=== PATIENT | female | born 1930 | race Caucasian/White ===

== ENCOUNTER 2021-08-09 11:13 | Inpatient (IN) | payer MEDICARE ==
[~2021-08-09] VITALS: Ht 167.6 cm; Wt 75.0 kg
--- NOTE | 2021-08-09 11:45 | PHYS DOC ---
Past Medical History Past Medical History: Arthritis, Arrhythmia, Dementia, Hypertension, Hypo thyroid, Renal Disease Additional Past Medical Histor: uterine ca, skin cancer, cateract, rentinal detatchment (RAFAEL ESPINOZA APRN) Past Surgical History: Cancer Surgery (RAFAEL ESPINOZA APRN) Smoking Status: Never Smoker Alcohol Use: None Drug Use: None (RAFAEL ESPINOZA APRN) General Adult HPI: HPI: Patient is an 89-year-old female that presents today via EMS after falling yesterday and being found in the bathroom by her family this morning. Per EMS report patient was found by granddaughter in the bathroom patient is pleasantly confused unable to say how she fell or when she fell, but per report family saw her yesterday afternoon. Patient was incontinent of both bowel and bladder and was being provided pericare at bedside was noted to have skin breakdown on her buttock area, also bruises noted on her back in various stages of healing, also noted to have a left heel skin breakdown noted, bruises noted on her arms as well. Patient unable to give history and has never been to this facility before. (RAFAEL ESPINOZA TABULAR TYPIST) Review of Systems: Review of Systems: Patient is confused and denies any complaints of pain or issues. (RAFAEL ESPINOZA TABULAR TYPIST) Heart Score: C/O Chest Pain: N/A Risk Factors: Risk Factors: DM, Current or recent (<one month) smoker, HTN, HLP, family history of CAD, obesity. Risk Scores: Score 0 - 3: 2.5% MACE over next 6 weeks - Discharge Home Score 4 - 6: 20.3% MACE over next 6 weeks - Admit for Clinical Observation Score 7 - 10: 72.7% MACE over next 6 weeks - Early Invasive Strategies (RAFAEL ESPINOZA APRN) Physical Exam: PE: Constitutional: Frail elderly female, pleasantly confused, nontoxic and no acute distress HENT: Normocephalic, atraumatic, bilateral external ears normal, oropharynx dry, [] Eyes: PERRLA, EOMI, conjunctiva normal, no discharge. [] Neck: Normal range of motion, no tenderness, supple, no stridor. [] Cardiovascular:irregular, peripheral pulse present Lungs & Thorax: Bilateral breath sounds present, heart tones normal, no crepitus noted, contusion noted Abdomen: Bowel sounds normal, soft, no tenderness, no masses, no pulsatile masses. [] Skin: Pressure wounds noted on coccyx area and buttocks area, periarea is red and excoriated, left heel pressure wound noted no active bleeding, bruises noted over arms, left posterior chest wall large size bruise noted, right posterior chest bruising noted. Back: tenderness over posterior chest wall noted, [] Extremities: No tenderness, no cyanosis, no clubbing, ROM intact, no edema. [] Neurologic: Alert and oriented to person and knows she is in the hospital, unable to recall the last 24 hours, normal motor function, normal sensory function, no focal deficits noted. [] Psychologic: Affect normal, pleasant, cooperative with staff, [] (RAFAEL ESPINOZA APRN) Current Patient Data: Labs: Laboratory Tests Test 08/09/21 11:27 08/09/21 12:08 Urine Collection Type U cath Urine Color Yellow Urine Clarity Clear Urine pH 6.0 Urine Specific [place] 1.025 Urine Protein 100 mg/dL Urine Glucose (UA) 100 mg/dL Urine Ketones (Stick) 15 mg/dL Urine Blood Large Urine Nitrite Negative Urine Bilirubin Negative Urine Urobilinogen Dipstick 0.2 mg/dL Urine Leukocyte Esterase Negative Urine RBC 1-2 /HPF Urine WBC Occ /HPF Urine Bacteria Few /HPF White Blood Count 14.7 x10^3/uL Red Blood Count 3.64 x10^6/uL Hemoglobin 12.7 g/dL Hematocrit 37.0 % Mean Corpuscular Volume 102 fL Mean Corpuscular Hemoglobin 35 pg Mean Corpuscular Hemoglobin Concent 34 g/dL Red Cell Distribution Width 12.8 % Platelet Count 202 x10^3/uL Neutrophils (%) (Auto) 90 % Lymphocytes (%) (Auto) 4 % Monocytes (%) (Auto) 6 % Eosinophils (%) (Auto) 0 % Basophils (%) (Auto) 1 % Neutrophils # (Auto) 13.2 x10^3/uL Lymphocytes # (Auto) 0.5 x10^3/uL Monocytes # (Auto) 0.9 x10^3/uL Eosinophils # (Auto) 0.0 x10^3/uL Basophils # (Auto) 0.1 x10^3/uL Platelet Estimate Pending Sodium Level 144 mmol/L Potassium Level 4.6 mmol/L Chloride Level 108 mmol/L Carbon Dioxide Level 21 mmol/L Anion Gap 15 Blood Urea Nitrogen 54 mg/dL Creatinine 2.7 mg/dL Estimated GFR (Cockcroft-Gault) 16.6 BUN/Creatinine Ratio 20 Glucose Level 146 mg/dL Calcium Level 9.1 mg/dL Total Bilirubin 0.7 mg/dL Aspartate Amino Transf (AST/SGOT) 70 U/L Alanine Aminotransferase (ALT/SGPT) 43 U/L Alkaline Phosphatase 54 U/L Creatine Kinase 1531 U/L Troponin I Quantitative 0.032 ng/mL Total Protein 7.1 g/dL Albumin 3.2 g/dL Albumin/Globulin Ratio 0.8 Current Medications Medications (Trade) Dose Ordered Sig/Kevin Route PRN Reason Start Time Stop Time Status Last Admin Dose Admin Sodium Chloride 500 ml @ 250 mls/hr 1X ONCE IV 08/09/21 13:30 08/09/21 15:29 UNV (RAFAEL ESPINOZA APRN) EKG: EKG: EKG done at [address] Bourne at 1157 no STEMI sinus rhythm no ectopy noted [] (RAFAEL ESPINOZA TABULAR TYPIST) Radiology/Procedures: Radiology/Procedures: REASON: fall PROCEDURE: CHEST AP ONLY AP chest. HISTORY: Fall AP view was taken of the chest. There is arthritis in both shoulders. Lungs are free of infiltrates. Heart is normal in size. There is a skin fold on the left. IMPRESSION: 1. No acute infiltrates. Electronically signed by: Leobardo Blanc MD (08/09/2021 11:54 AM) [facility] [PROCEDURE: CT CHEST ABDOMEN PELVIS WO CT scan of the chest, abdomen and pelvis without contrast 08/09/2021 CLINICAL HISTORY: Fall with chest, abdominal and pelvic pain. TECHNIQUE: Unenhanced, contiguous, 0.625 mm axial sections were obtained through the chest abdomen and pelvis. 5 mm reconstructed sagittal, axial and coronal images were obtained. One or more of the following individualized dose reduction techniques were utilized for this study: 1. Automated exposure control. 2. Adjustment of the mA and/or kV according to patient size. 3. Use of iterative reconstruction technique. FINDINGS: Comparison study is dated 08/09/2021. Atherosclerotic calcification of the thoracic aorta is seen. The thoracic aorta is tortuous but tapers normally. There is mild cardiomegaly. No mediastinal hematoma is seen. Minimal dependent subsegmental atelectasis is seen bilaterally. No area of consolidation is noted. No pneumothorax or pleural effusion is seen. The liver, spleen, pancreas, right adrenal gland and left kidney are within normal limits. A 2.5 cm rounded mass is seen involving the left adrenal gland. This likely represents an adrenal adenoma. A 3 mm nonobstructing calculus is seen involving the midpole of the right kidney. Atherosclerotic calcification abdominal aorta is seen. The abdominal aorta tapers normally. The gallbladder is well-distended. No free fluid or free air is within the abdomen. There is no evidence of bowel obstruction. Diverticula are seen involving the colon. No inflammatory changes are seen adjacent fat. Images of the pelvis and straight 3 urinary bladder distended with urine. Calcifications are seen within the pelvis consistent with phleboliths. No pelvic hematoma is seen. No free fluid is noted. Very mild S-shaped curvature of the thoracolumbar spine is seen. Degenerative changes are seen involving the thoracic and lumbar spine. Degenerative changes are seen involving the thoracic and lumbar spine along with both hips. The osseous structures are grossly intact. IMPRESSION: No acute abnormality is seen. ]REASON: fall PROCEDURE: CT HEAD AND CERVICAL SPINE WO CT HEAD AND C-SPINE WO Date: 08/09/2021 12:18 PM Clinical Indication: Pain, fall / Spl. Instructions: / History: Comparison: None. Technique: 5 mm axial tomographic images were obtained of the head without contrast. These were viewed on brain and bone windows. Noncontrast CT of the cervical spine was performed. Sagittal and coronal reformats were performed and evaluated. One or more of the following dose reduction techniques were utilized: Automated exposure control (AEC), Adjustment of mA and/or kV according to patient size, Use of iterative reconstruction technique such as ASiR, CT scan done according to ALARA and image gently/image wisely HEAD FINDINGS: Mild generalized cerebral and cerebellar volume loss. Mild nonspecific periventricular hypoattenuation, most commonly seen with chronic small vessel ischemic disease. No intra- or extra-axial mass or fluid collection. No acute hemorrhage. The ventricles are normal in size, shape, and morphology. The sanders-white matter junction is normal. The basilar cisterns are patent. The visualized paranasal sinuses are normal. The visualized portions of the orbits and globes are normal. The mastoid air cells are clear. No aggressive osseous lesion or fracture. CERVICAL SPINE FINDINGS: The cervical spine is normally aligned. No acute fracture. No aggressive lytic or blastic osseous lesions. Severe multilevel degenerative disc space height loss. Multilevel moderate spinal canal stenosis secondary to disc protrusions and marginal osteophytes. Multilevel moderate to severe neuroforaminal narrowing secondary to uncovertebral arthrosis. Multilevel moderate to severe facet arthrosis. The thyroid gland is normal. No cervical lymphadenopathy. Bilateral carotid atherosclerosis. The visualized aerodigestive tract is normal. The visualized portions of the lungs are clear. IMPRESSION: 1. No acute intracranial process. 2. No acute cervical spine fracture. Electronically signed by: Gurinder Adams MD (08/09/2021 1:06 PM) [facility] (RAFAEL ESPINOZA APRN) Course & Med Decision Making: Course & Med Decision Making Pertinent Labs and Imaging studies reviewed. (See chart for details) 12:00 granddaughter at bedside was able to provide more information patient was last seen on Wednesday by great-granddaughter, per granddaughter patient has a mass medical history of hypertension, renal issues, thyroid issues and some early stages of dementia. No concerns for elderly abuse at this time. 1345 spoke to granddaughter and patient regarding lab results and radiology results, due to being a patient safety issue and renal function tests being abnormal that patient admission overnight or longer would be in the patient's best interest. Granddaughter and patient agree. Patient is complaining of coccyx pain will order Tylenol, vital signs stable going to speak with hospitalist about admission [] (RAFAEL ESPINOZA TABULAR TYPIST) Course & Med Decision Making Discussed with BREN in real time. Concerned for rhabdomyolysis based on CK, KAYLEY, Blood on UA with only 1-2 rbc/hpf. Recommended rehydration at IVF > 200 ml/hr and admission. (ROBERT BOURNE MD) Dragon Disclaimer: Dragon Disclaimer: This electronic medical record was generated, in whole or in part, using a voice recognition dictation system. (RAFAEL ESPINOZA APRN) Departure Departure Impression: Primary Impression: Acute renal failure (ARF) Qualified Codes: N17.9 - Acute kidney failure, unspecified Additional Impressions: Fall at home Qualified Codes: W19.XXXA - Unspecified fall, initial encounter; Y92.009 - Unspecified place in unspecified non-institutional (private) residence as the place of occurrence of the external cause Rhabdomyolysis Disposition: 09 ADMITTED INPATIENT Admitting Physician: TERRENCE (RAFAEL ESPINOZA APRN) Condition: GUARDED RAFAEL ESPINOZA APRN Aug 09, 2021 11:45 ROBERT BOURNE MD Aug 10, 2021 18:28
[2021-08-09 11:46] LABS: BILIRUBIN,URINE NEGATIVE (NEG); CLARITY,URINE CLEAR; COLOR,URINE YELLOW; NITRITE,URINE NEGATIVE (NEG); PROTEIN,URINE 100 mg/dL (NEG-TRACE); UROBILINOGEN,URINE 0.2 mg/dL (0.2 mg/dL)
[2021-08-09 11:57] LABS: BACTERIA,URINE FEW /HPF (0-FEW); WBC,URINE OCC /HPF (0-4)
--- NOTE | 2021-08-09 11:57 | RAD ---
AP chest. HISTORY: Fall AP view was taken of the chest. There is arthritis in both shoulders. Lungs are free of infiltrates. Heart is normal in size. There is a skin fold on the left. IMPRESSION: 1. No acute infiltrates. Electronically signed by: Leobardo Blanc MD (08/09/2021 11:54 AM) [facility]
[2021-08-09 12:18] LABS: BASO # 0.1 x10^3/uL (0.0-0.2); BASO % 1 % (0-3); EOS % 0 % (0-3); HEMOGLOBIN 12.7 g/dL (12.0-15.5); LYMPH # 0.5 x10^3/uL (1.0-4.8); LYMPH % 4 % (24-48); MEAN CORPUSCULAR HEMOGLOBIN 35 pg (25-35); MEAN CORPUSCULAR HGB CONC 34 g/dL (31-37); MEAN CORPUSCULAR VOLUME 102 fL (79-100); MONO # 0.9 x10^3/uL (0.0-1.1); MONO % 6 % (0-9); NEUT # 13.2 x10^3/uL (1.8-7.7); NEUT % 90 % (31-73); PLATELET COUNT 202 x10^3/uL (140-400); RED BLOOD COUNT 3.64 x10^6/uL (3.50-5.40); RED CELL DISTRIBUTION WIDTH 12.8 % (11.5-14.5); WHITE BLOOD COUNT 14.7 x10^3/uL (4.0-11.0)
[2021-08-09 12:25] LABS: CALCIUM 9.1 mg/dL (8.5-10.1); CREATININE 2.7 mg/dL (0.6-1.0); GFR 16.6; POTASSIUM 4.6 mmol/L (3.5-5.1)
[2021-08-09 12:41] LABS: ALBUMIN 3.2 g/dL (3.4-5.0); ALBUMIN/GLOBULIN RATIO 0.8 (1.0-1.7); TOTAL BILIRUBIN 0.7 mg/dL (0.2-1.0); TOTAL PROTEIN 7.1 g/dL (6.4-8.2)
--- NOTE | 2021-08-09 13:01 | EKG ---
[facility] [address] [place] [address] Test Date: 2021-08-09 Test Time: 11:53:10 Pat Name: SIMON BISWAS Department: Room: Gender: F Career Professional: : [id number] Requested By: RAFAEL ESPINOZA Order Number: [id number] Reading MD: Blane Jarvis MD Measurements Intervals [place] Rate: 98 P: 52 DE: 170 QRS: -5 QRSD: 78 T: 23 QT: 348 QTc: 446 Interpretive Statements SINUS RHYTHM Electronically Signed On 08-11-2021 11:00:35 CDT by Blane Jarvis MD
--- NOTE | 2021-08-09 13:09 | RAD ---
CT HEAD AND C-SPINE WO Date: 08/09/2021 12:18 PM Clinical Indication: Pain, fall / Spl. Instructions: / History: Comparison: None. Technique: 5 mm axial tomographic images were obtained of the head without contrast. These were view ed on brain and bone windows. Noncontrast CT of the cervical spine was performed. Sagittal and muse l reformats were performed and evaluated. One or more of the following dose reduction techniques were utilized: Automated exposure control (AEC), Adjustment of mA and/or kV according to patient size, Us e of iterative reconstruction technique such as ASiR, CT scan done according to ALARA and image gentl y/image wisely HEAD FINDINGS: Mild generalized cerebral and cerebellar volume loss. Mild nonspecific periventricular hypoattenuatio n, most commonly seen with chronic small vessel ischemic disease. No intra- or extra-axial mass or fluid collection. No acute hemorrhage. The ventricles are normal in size, shape, and morphology. The sanders-white matter junction is normal. The basilar cisterns are paten t. The visualized paranasal sinuses are normal. The visualized portions of the orbits and globes are no rmal. The mastoid air cells are clear. No aggressive osseous lesion or fracture. CERVICAL SPINE FINDINGS: The cervical spine is normally aligned. No acute fracture. No aggressive lytic or blastic osseous les ions. Severe multilevel degenerative disc space height loss. Multilevel moderate spinal canal stenosis seco ndary to disc protrusions and marginal osteophytes. Multilevel moderate to severe neuroforaminal narr owing secondary to uncovertebral arthrosis. Multilevel moderate to severe facet arthrosis. The thyroid gland is normal. No cervical lymphadenopathy. Bilateral carotid atherosclerosis. The visu alized aerodigestive tract is normal. The visualized portions of the lungs are clear. IMPRESSION: 1. No acute intracranial process. 2. No acute cervical spine fracture. Electronically signed by: Gurinder Adams MD (08/09/2021 1:06 PM) [facility]
--- NOTE | 2021-08-09 13:28 | RAD ---
CT scan of the chest, abdomen and pelvis without contrast 08/09/2021 CLINICAL HISTORY: Fall with chest, abdominal and pelvic pain. TECHNIQUE: Unenhanced, contiguous, 0.625 mm axial sections were obtained through the chest abdomen an d pelvis. 5 mm reconstructed sagittal, axial and coronal images were obtained. One or more of the following individualized dose reduction techniques were utilized for this study: 1. Automated exposure control. 2. Adjustment of the mA and/or kV according to patient size. 3. Use of iterative reconstruction technique. FINDINGS: Comparison study is dated 08/09/2021. Atherosclerotic calcification of the thoracic aorta is seen. The thoracic aorta is tortuous but taper s normally. There is mild cardiomegaly. No mediastinal hematoma is seen. Minimal dependent subsegmental atelectasis is seen bilaterally. No area of consolidation is noted. No pneumothorax or pleural effusion is seen. The liver, spleen, pancreas, right adrenal gland and left kidney are within normal limits. A 2.5 cm r ounded mass is seen involving the left adrenal gland. This likely represents an adrenal adenoma. A 3 mm nonobstructing calculus is seen involving the midpole of the right kidney. Atherosclerotic calcification abdominal aorta is seen. The abdominal aorta tapers normally. The gallb ladder is well-distended. No free fluid or free air is within the abdomen. There is no evidence of adina wel obstruction. Diverticula are seen involving the colon. No inflammatory changes are seen adjacent fat. Images of the pelvis and straight 3 urinary bladder distended with urine. Calcifications are seen wit hin the pelvis consistent with phleboliths. No pelvic hematoma is seen. No free fluid is noted. Very mild S-shaped curvature of the thoracolumbar spine is seen. Degenerative changes are seen involving t he thoracic and lumbar spine. Degenerative changes are seen involving the thoracic and lumbar spine a long with both hips. The osseous structures are grossly intact. IMPRESSION: No acute abnormality is seen. Electronically signed by: Jeyson Orosco MD (08/09/2021 1:26 PM) [id number]
[2021-08-09] MEDS ORDERED: ACETAMINOPHEN 325 MG TABLET. PO PRN (14:00)
[2021-08-09] MEDS ORDERED: ACETAMINOPHEN 500 MG TABLET PO ONE (14:00)
[2021-08-09 14:11] LABS: % BANDS 3 % (0-9); % LYMPHS 7 % (24-48); % MONOS 4 % (0-10); % SEGS 86 % (35-66)
[2021-08-09 14:12] LABS: PLT ESTIMATE ADEQUATE (ADEQUATE)
[2021-08-09] MEDS ORDERED: IV NORMAL SALINE 500ML BAG 250 ML IV ONE (14:30)
[2021-08-09 19:00] VITALS: BP 166/81
[2021-08-09] MEDS ORDERED: IV NORMAL SALINE 1000ML BAG 1,000 ML IV SCH (19:00)
--- NOTE | 2021-08-09 20:13 | HP ---
DATE OF SERVICE: 08/09/2021 ADMIT DATE: 08/09/2021 CHIEF COMPLAINT: Found down. HISTORY OF PRESENT ILLNESS: The patient is a pleasant elderly female who I believe lives alone. She was found down. She has bruises all over. She has some skin breakdown. She has a burn on her left hand that appears to possibly be trying to heal, but it looks similar to a skin cancer as well, although she states that it is a burn. While in the ER, we noticed that she is in renal failure with a creatinine of 2.7. I suspect this is chronic. She has some azotemia with a BUN of 54. Her white count is also high at 15. She has a slightly elevated blood pressure 166/81. I discussed the case with ER physician. We are going to admit the patient and consult social studies department chair for possible long-term care placement, do some wound care and consult Nephrology regarding her acute on chronic renal failure. I have also placed on some empiric IV antibiotics. PAST MEDICAL HISTORY: Arrhythmia, arthritis, dementia, hypertension, hypothyroidism, chronic renal insufficiency, uterine cancer, skin cancer, cataracts, retinal detachment, cancer surgery. ALLERGIES: LISINOPRIL. FAMILY HISTORY: Diabetes. SOCIAL HISTORY: She does not drink, smoke or take drugs. She is retired, lives alone. MEDICATIONS: Reviewed, please refer to the MRAD. REVIEW OF SYSTEMS: GENERAL: She complains of weakness. SKIN: She complains of bruises. EYES: No blurred, double or loss of vision. NOSE AND THROAT: No history of nosebleeds, hoarseness or sore throat. HEART: No history of palpitations, chest pain or shortness of breath on exertion. LUNGS: Denies cough, hemoptysis, wheezing or shortness of breath. GASTROINTESTINAL: Denies changes in appetite, nausea, vomiting, diarrhea or constipation. GENITOURINARY: No history of frequency, urgency, hesitancy or nocturia. NEUROLOGIC: She complains of falls. PSYCHIATRIC: She complains of some boredom and depression at times. ENDOCRINE: No history of heat or cold intolerance, polyuria or polydipsia. EXTREMITIES: Denies muscle weakness, joint pain, pain on walking or stiffness. . PHYSICAL EXAMINATION: VITALS: Within normal limits and are stable. GENERAL: She is pleasant. HEENT: Normal cephalic atraumatic, external auditory canals are patent. EYES: Extraocular muscles are intact, pupils are equally round and reactive to light and accommodation. MUSCULOSKELETAL: Well developed, well nourished, good range of motion. ENDOCRINE: No thyromegaly was palpated. LYMPHATICS: No cervical chain or axillary nodes were noted. HEMATOPOIETIC: No bruising. NECK: Supple, no JVD, no thyromegaly was noted. LUNGS: Clear to auscultation in all lung walls without rhonchi or wheezing. HEART: RRR, S1, S2 present. Peripheral pulses intact, no obvious murmurs were noted. ABDOMEN: Soft, nontender. Positive bowel sounds no organomegaly, normal bowel sounds. EXTREMITIES: She has got multiple bruises. NEUROLOGIC: Normal speech, normal tone. A and O x 3, moves all extremities, no obvious focal deficits. PSYCHIATRIC: She is a little anxious. SKIN: She has got multiple bruises. Please see the pictures. VASCULAR: Good capillary refill, neurovascular bundle appears to be intact. LABORATORY DATA: White count 14.7, hemoglobin 12.7, platelets 202. BUN 54, creatinine 2.7, glucose 146. CPK 1531. ASSESSMENT AND PLAN: Found down, rhabdomyolysis, acute on chronic renal failure, leukocytosis, azotemia and advanced age. The patient has been admitted. We will start empiric IV antibiotics, IV fluids. Consult Nephrology. Consult social studies department chair. Trend labs. Home meds. Deep venous thrombosis prophylaxis. Full code. Long-term prognosis is guarded. GETACHEW DR: Key TID: [id number]
[2021-08-09] MEDS: cefTRIAXone IV Push 1 GM VIAL. IVP SCH (21:32)
[2021-08-09] MEDS: IV NORMAL SALINE 1000ML BAG 1,000 ML IV SCH (21:33)
[2021-08-09 23:05] VITALS: BP 169/89
[2021-08-10 03:00] VITALS: BP 167/83
[2021-08-10 07:00] VITALS: BP 171/90
[2021-08-10 07:54] LABS: BASO % 0 % (0-3); EOS # 0.1 x10^3/uL (0.0-0.7); EOS % 1 % (0-3); HEMATOCRIT 31.6 % (36.0-47.0); HEMOGLOBIN 10.6 g/dL (12.0-15.5); LYMPH % 9 % (24-48); MEAN CORPUSCULAR HEMOGLOBIN 35 pg (25-35); MEAN CORPUSCULAR HGB CONC 34 g/dL (31-37); MEAN CORPUSCULAR VOLUME 103 fL (79-100); MONO # 0.9 x10^3/uL (0.0-1.1); MONO % 9 % (0-9); NEUT # 8.3 x10^3/uL (1.8-7.7); NEUT % 81 % (31-73); PLATELET COUNT 174 x10^3/uL (140-400); RED BLOOD COUNT 3.08 x10^6/uL (3.50-5.40); WHITE BLOOD COUNT 10.3 x10^3/uL (4.0-11.0)
[2021-08-10] MEDS: LEVOTHYROXINE 25 MCG TABLET. PO SCH (07:57)
[2021-08-10 08:33] LABS: CALCIUM 8.4 mg/dL (8.5-10.1); CREATININE 2.6 mg/dL (0.6-1.0); GFR 17.4; POTASSIUM 3.8 mmol/L (3.5-5.1)
[2021-08-10] MEDS: IV NORMAL SALINE 1000ML BAG 1,000 ML IV SCH ×2 (09:20→22:40)
--- NOTE | 2021-08-10 11:21 | PDOC2 ---
CONSULT Date of Consult Date of Consult DATE: 08/10/21 TIME: 11:13 Reason for Consult Reason for Consult: KAYLEY Referring Physician Referring Physician: TY Identification/Chief Complaint Chief Complaint FALL, CONFUSION Source Source: Chart review History of Present Illness Reason for Visit: THIS IS AN 89 YR OLD WITH FALL AND BRUISES. CPK UP. CONFUSED. UA NOTABLE FOR DIPSTICK POS RBC BUT RARE ON HPF. CR OF 2.8. NO KNOWN CKD BUT PROB HAS SOME UNDERLYING CKD. HEMODYNAMICALLY STABLE. NO NEPHROTOXINS NOTED. NO OTHER KNOWN HX. Past Medical History Past Medical History UNKNOWN Endocrine: Hypothyroidism Past Surgical History Past Surgical History UNKNOWN Family History Family History: No Significant Social History No ALCOHOL: none Lives: Alone Current Problem List Problem List Problems Medical Problems: (1) Acute renal failure (ARF) Status: Acute (2) Fall at home Status: Acute Current Medications Current Medications Current Medications Sodium Chloride 250 ml @ 125 mls/hr 1X ONCE IV Last administered on 08/09/21at 14:21; Start 08/09/21 at 14:30; Stop 08/09/21 at 16:29; Status DC Acetaminophen (Tylenol) 500 mg 1X ONCE PO Last administered on 08/09/21at 14:19; Start 08/09/21 at 14:00; Stop 08/09/21 at 14:17; Status DC Acetaminophen (Tylenol) 650 mg PRN Q4HRS PRN PO FEVER > 100.3'F Last admi nistered on 08/10/21at 07:57; Start 08/09/21 at 14:00; Stop 08/10/21 at 13:59 Verapamil HCl (Calan) 40 mg DAILY PO ; Start 08/10/21 at 09:00 Levothyroxine Sodium (Synthroid) 25 mcg DAILY06 PO Last administered on 08/10/21at 07:57; Start 08/10/21 at 06:00 Sodium Chloride 1,000 ml @ 100 mls/hr Q10H IV ; Start 08/09/21 at 19:00; Status Cancel Sodium Chloride 1,000 ml @ 75 mls/hr [id number] IV Last administered on 08/10/21at 09:20; Start 08/09/21 at 20:00 Ceftriaxone Sodium (Rocephin) 1 gm Q24H IVP Last administered on 08/09/21at 21:32; Start 08/09/21 at 21:00 Allergies Allergies: Coded Allergies: lisinopril (Verified Allergy, Intermediate, 08/09/21) ROS Review of System UNABLE TO OBTAIN Physical Exam General: Cooperative, No acute distress HEENT: Atraumatic, PERRLA Lungs: Clear to auscultation Heart: Regular rate Abdomen: Normal bowel sounds Extremities: No clubbing Skin: No breakdown, Other (BRUISING DIFFUSELY UE) Neuro: Other (CONFUSED) Psych/Mental Status: Other (CONFUSED) MUSCULOSKELETAL: No deformity, No swelling Vitals VITALS Vital Signs Date Time Temp Pulse Resp B/P (MAP) Pulse Ox O2 Delivery O2 Flow Rate FiO2 08/10/21 07:00 98.3 89 16 171/90 (117) 94 Room Air 98.3 Labs Labs Laboratory Tests Test 08/09/21 11:27 08/09/21 12:08 08/10/21 07:30 Urine Collection Type U cath Urine Color Yellow Urine Clarity Clear Urine pH 6.0 (<5.0-8.0) Urine Specific [place] 1.025 (1.000-1.030) Urine Protein 100 mg/dL (NEG-TRACE) Urine Glucose (UA) 100 mg/dL (NEG) Urine Ketones (Stick) 15 mg/dL (NEG) Urine Blood Large (NEG) Urine Nitrite Negative (NEG) Urine Bilirubin Negative (NEG) Urine Urobilinogen Dipstick 0.2 mg/dL (0.2 mg/dL) Urine Leukocyte Esterase Negative (NEG) Urine RBC 1-2 /HPF (0-2) Urine WBC Occ /HPF (0-4) Urine Bacteria Few /HPF (0-FEW) White Blood Count 14.7 x10^3/uL (4.0-11.0) 10.3 x10^3/uL (4.0-11.0) Red Blood Count 3.64 x10^6/uL (3.50-5.40) 3.08 x10^6/uL (3.50-5.40) Hemoglobin 12.7 g/dL (12.0-15.5) 10.6 g/dL (12.0-15.5) Hematocrit 37.0 % (36.0-47.0) 31.6 % (36.0-47.0) Mean Corpuscular Volume 102 fL (79-100) 103 fL (79-100) Mean Corpuscular Hemoglobin 35 pg (25-35) 35 pg (25-35) Mean Corpuscular Hemoglobin Concent 34 g/dL (31-37) 34 g/dL (31-37) Red Cell Distribution Width 12.8 % (11.5-14.5) 13.0 % (11.5-14.5) Platelet Count 202 x10^3/uL (140-400) 174 x10^3/uL (140-400) Neutrophils (%) (Auto) 90 % (31-73) 81 % (31-73) Lymphocytes (%) (Auto) 4 % (24-48) 9 % (24-48) Monocytes (%) (Auto) 6 % (0-9) 9 % (0-9) Eosinophils (%) (Auto) 0 % (0-3) 1 % (0-3) Basophils (%) (Auto) 1 % (0-3) 0 % (0-3) Neutrophils # (Auto) 13.2 x10^3/uL (1.8-7.7) 8.3 x10^3/uL (1.8-7.7) Lymphocytes # (Auto) 0.5 x10^3/uL (1.0-4.8) 1.0 x10^3/uL (1.0-4.8) Monocytes # (Auto) 0.9 x10^3/uL (0.0-1.1) 0.9 x10^3/uL (0.0-1.1) Eosinophils # (Auto) 0.0 x10^3/uL (0.0-0.7) 0.1 x10^3/uL (0.0-0.7) Basophils # (Auto) 0.1 x10^3/uL (0.0-0.2) 0.0 x10^3/uL (0.0-0.2) Segmented Neutrophils % 86 % (35-66) Band Neutrophils % 3 % (0-9) Lymphocytes % 7 % (24-48) Monocytes % 4 % (0-10) Platelet Estimate Adequate (ADEQUATE) Sodium Level 144 mmol/L (136-145) 144 mmol/L (136-145) Potassium Level 4.6 mmol/L (3.5-5.1) 3.8 mmol/L (3.5-5.1) Chloride Level 108 mmol/L (98-107) 111 mmol/L (98-107) Carbon Dioxide Level 21 mmol/L (21-32) 22 mmol/L (21-32) Anion Gap 15 (6-14) 11 (6-14) Blood Urea Nitrogen 54 mg/dL (7-20) 58 mg/dL (7-20) Creatinine 2.7 mg/dL (0.6-1.0) 2.6 mg/dL (0.6-1.0) Estimated GFR (Cockcroft-Gault) 16.6 17.4 BUN/Creatinine Ratio 20 (6-20) Glucose Level 146 mg/dL (70-99) 111 mg/dL (70-99) Calcium Level 9.1 mg/dL (8.5-10.1) 8.4 mg/dL (8.5-10.1) Total Bilirubin 0.7 mg/dL (0.2-1.0) Aspartate Amino Transf (AST/SGOT) 70 U/L (15-37) Alanine Aminotransferase (ALT/SGPT) 43 U/L (14-59) Alkaline Phosphatase 54 U/L (46-116) Creatine Kinase 1531 U/L (26-192) Troponin I Quantitative 0.032 ng/mL (0.000-0.055) Total Protein 7.1 g/dL (6.4-8.2) Albumin 3.2 g/dL (3.4-5.0) Albumin/Globulin Ratio 0.8 (1.0-1.7) Laboratory Tests Test 08/09/21 11:27 08/09/21 12:08 08/10/21 07:30 Urine Collection Type U cath Urine Color Yellow Urine Clarity Clear Urine pH 6.0 (<5.0-8.0) Urine Specific [place] 1.025 (1.000-1.030) Urine Protein 100 mg/dL (NEG-TRACE) Urine Glucose (UA) 100 mg/dL (NEG) Urine Ketones (Stick) 15 mg/dL (NEG) Urine Blood Large (NEG) Urine Nitrite Negative (NEG) Urine Bilirubin Negative (NEG) Urine Urobilinogen Dipstick 0.2 mg/dL (0.2 mg/dL) Urine Leukocyte Esterase Negative (NEG) Urine RBC 1-2 /HPF (0-2) Urine WBC Occ /HPF (0-4) Urine Bacteria Few /HPF (0-FEW) White Blood Count 14.7 x10^3/uL (4.0-11.0) 10.3 x10^3/uL (4.0-11.0) Red Blood Count 3.64 x10^6/uL (3.50-5.40) 3.08 x10^6/uL (3.50-5.40) Hemoglobin 12.7 g/dL (12.0-15.5) 10.6 g/dL (12.0-15.5) Hematocrit 37.0 % (36.0-47.0) 31.6 % (36.0-47.0) Mean Corpuscular Volume 102 fL (79-100) 103 fL (79-100) Mean Corpuscular Hemoglobin 35 pg (25-35) 35 pg (25-35) Mean Corpuscular Hemoglobin Concent 34 g/dL (31-37) 34 g/dL (31-37) Red Cell Distribution Width 12.8 % (11.5-14.5) 13.0 % (11.5-14.5) Platelet Count 202 x10^3/uL (140-400) 174 x10^3/uL (140-400) Neutrophils (%) (Auto) 90 % (31-73) 81 % (31-73) Lymphocytes (%) (Auto) 4 % (24-48) 9 % (24-48) Monocytes (%) (Auto) 6 % (0-9) 9 % (0-9) Eosinophils (%) (Auto) 0 % (0-3) 1 % (0-3) Basophils (%) (Auto) 1 % (0-3) 0 % (0-3) Neutrophils # (Auto) 13.2 x10^3/uL (1.8-7.7) 8.3 x10^3/uL (1.8-7.7) Lymphocytes # (Auto) 0.5 x10^3/uL (1.0-4.8) 1.0 x10^3/uL (1.0-4.8) Monocytes # (Auto) 0.9 x10^3/uL (0.0-1.1) 0.9 x10^3/uL (0.0-1.1) Eosinophils # (Auto) 0.0 x10^3/uL (0.0-0.7) 0.1 x10^3/uL (0.0-0.7) Basophils # (Auto) 0.1 x10^3/uL (0.0-0.2) 0.0 x10^3/uL (0.0-0.2) Segmented Neutrophils % 86 % (35-66) Band Neutrophils % 3 % (0-9) Lymphocytes % 7 % (24-48) Monocytes % 4 % (0-10) Platelet Estimate Adequate (ADEQUATE) Sodium Level 144 mmol/L (136-145) 144 mmol/L (136-145) Potassium Level 4.6 mmol/L (3.5-5.1) 3.8 mmol/L (3.5-5.1) Chloride Level 108 mmol/L (98-107) 111 mmol/L (98-107) Carbon Dioxide Level 21 mmol/L (21-32) 22 mmol/L (21-32) Anion Gap 15 (6-14) 11 (6-14) Blood Urea Nitrogen 54 mg/dL (7-20) 58 mg/dL (7-20) Creatinine 2.7 mg/dL (0.6-1.0) 2.6 mg/dL (0.6-1.0) Estimated GFR (Cockcroft-Gault) 16.6 17.4 BUN/Creatinine Ratio 20 (6-20) Glucose Level 146 mg/dL (70-99) 111 mg/dL (70-99) Calcium Level 9.1 mg/dL (8.5-10.1) 8.4 mg/dL (8.5-10.1) Total Bilirubin 0.7 mg/dL (0.2-1.0) Aspartate Amino Transf (AST/SGOT) 70 U/L (15-37) Alanine Aminotransferase (ALT/SGPT) 43 U/L (14-59) Alkaline Phosphatase 54 U/L (46-116) Creatine Kinase 1531 U/L (26-192) Troponin I Quantitative 0.032 ng/mL (0.000-0.055) Total Protein 7.1 g/dL (6.4-8.2) Albumin 3.2 g/dL (3.4-5.0) Albumin/Globulin Ratio 0.8 (1.0-1.7) Assessment/Plan Assessment/Plan IMP KAYLEY-CR OF 2.8 RHABDOMYOLYSIS MET ENCEPHALOPATHY LEUCOCYTOSIS PLAN HYDRATION RENAL SONOGRAM F/U CK LEVEL LABS IN AM KRISH LUX MD Aug 10, 2021 11:21
--- NOTE | 2021-08-10 13:00 | PDOC ---
[employer] PROGRESS NOTE Date of Service DOS: DATE: 08/10/21 TIME: 12:52 Chief Complaint Chief Complaint found down History of Present Illness History of Present Illness The patient is a pleasant elderly female who I believe lives alone. She was found down. She has bruises all over. She has some skin breakdown. She has a burn on her left hand that appears to possibly be trying to heal, but it looks similar to a skin cancer as well, although she states that it is a burn. While in the ER, we noticed that she is in renal failure with a creatinine of 2.7. I suspect this is chronic. She has some azotemia with a BUN of 54. Her white count is also high at 15. She has a slightly elevated blood pressure 166/81. I discussed the case with ER physician. We are going to admit the patient and consult community mental health social worker for possible long-term care placement, do some wound care and consult Nephrology regarding her acute on chronic renal failure. I have also placed on some empiric IV antibiotics. 08/10 Patient evaluated and examined at bedside. Really cannot provide much history she is very lethargic. Continue current fluids closely monitor renal function. Continue IV antibiotics. Cultures pending. Nephrology following. Vitals/I&O Vitals/I&O: Vital Signs Date Time Temp Pulse Resp B/P (MAP) Pulse Ox O2 Delivery O2 Flow Rate FiO2 08/10/21 08:25 Room Air 08/10/21 07:00 98.3 89 16 171/90 (117) 94 98.3 I & O 08/09/21 08/09/21 08/10/21 15:00 23:00 07:00 Intake Total 240 ml Output Total 200 ml Balance 240 ml -200 ml Physical Exam General: Cooperative, No acute distress Heart: Regular rate Lungs: Clear Abdomen: Normal bowel sounds, Soft, No tenderness Extremities: No clubbing, No edema, Normal pulses Skin: No breakdown, No significant lesion, Other (BRUISING DIFFUSELY UE) Labs Labs: Laboratory Tests Test 08/10/21 07:30 White Blood Count 10.3 x10^3/uL (4.0-11.0) Red Blood Count 3.08 x10^6/uL (3.50-5.40) Hemoglobin 10.6 g/dL (12.0-15.5) Hematocrit 31.6 % (36.0-47.0) Mean Corpuscular Volume 103 fL (79-100) Mean Corpuscular Hemoglobin 35 pg (25-35) Mean Corpuscular Hemoglobin Concent 34 g/dL (31-37) Red Cell Distribution Width 13.0 % (11.5-14.5) Platelet Count 174 x10^3/uL (140-400) Neutrophils (%) (Auto) 81 % (31-73) Lymphocytes (%) (Auto) 9 % (24-48) Monocytes (%) (Auto) 9 % (0-9) Eosinophils (%) (Auto) 1 % (0-3) Basophils (%) (Auto) 0 % (0-3) Neutrophils # (Auto) 8.3 x10^3/uL (1.8-7.7) Lymphocytes # (Auto) 1.0 x10^3/uL (1.0-4.8) Monocytes # (Auto) 0.9 x10^3/uL (0.0-1.1) Eosinophils # (Auto) 0.1 x10^3/uL (0.0-0.7) Basophils # (Auto) 0.0 x10^3/uL (0.0-0.2) Sodium Level 144 mmol/L (136-145) Potassium Level 3.8 mmol/L (3.5-5.1) Chloride Level 111 mmol/L (98-107) Carbon Dioxide Level 22 mmol/L (21-32) Anion Gap 11 (6-14) Blood Urea Nitrogen 58 mg/dL (7-20) Creatinine 2.6 mg/dL (0.6-1.0) Estimated GFR (Cockcroft-Gault) 17.4 Glucose Level 111 mg/dL (70-99) Calcium Level 8.4 mg/dL (8.5-10.1) Assessment and Plan Assessmemt and Plan Problems Medical Problems: (1) Acute renal failure (ARF) Status: Acute (2) Fall at home Status: Acute Found down, rhabdomyolysis, acute on chronic renal failure, leukocytosis, azotemia and advanced age, metabolic encephalopathy. The patient has been admitted. We will start empiric IV antibiotics, IV fluids. Consult Nephrology. Consult community mental health social worker. Trend labs. Home meds. Deep venous thrombosis prophylaxis. Full code. Long-term prognosis is guarded. Comment Review of Relevant I have reviewed the following items petros (where applicable) has been applied. Medications: Current Medications Medications (Trade) Dose Ordered Sig/Kevin Route PRN Reason Start Time Stop Time Status Last Admin Dose Admin Sodium Chloride 250 ml @ 125 mls/hr 1X ONCE IV 08/09/21 14:30 08/09/21 16:29 DC 08/09/21 14:21 Acetaminophen (Tylenol) 500 mg 1X ONCE PO 08/09/21 14:00 08/09/21 14:17 DC 08/09/21 14:19 Acetaminophen (Tylenol) 650 mg PRN Q4HRS PRN PO FEVER > 100.3'F 08/09/21 14:00 08/10/21 13:59 08/10/21 07:57 Levothyroxine Sodium (Synthroid) 25 mcg DAILY06 PO 08/10/21 06:00 08/10/21 07:57 Sodium Chloride 1,000 ml @ 75 mls/hr [id number] IV 08/09/21 20:00 08/10/21 09:20 Ceftriaxone Sodium (Rocephin) 1 gm Q24H IVP 08/09/21 21:00 08/09/21 21:32 Justifications for Admission Other Justification PATI VELARDE MD Aug 10, 2021 13:00
[2021-08-10] MEDS: VERAPAMIL 40 MG TABLET. PO SCH (13:28)
[2021-08-10 15:00] VITALS: BP 150/66
[2021-08-10 19:00] VITALS: BP 139/66
[2021-08-10] MEDS: cefTRIAXone IV Push 1 GM VIAL. IVP SCH (22:14)
[2021-08-10 23:51] VITALS: BP 167/87
[2021-08-11 04:59] LABS: BASO % 0 % (0-3); EOS # 0.1 x10^3/uL (0.0-0.7); EOS % 1 % (0-3); HEMOGLOBIN 10.4 g/dL (12.0-15.5); LYMPH # 1.3 x10^3/uL (1.0-4.8); LYMPH % 15 % (24-48); MEAN CORPUSCULAR HEMOGLOBIN 35 pg (25-35); MEAN CORPUSCULAR HGB CONC 33 g/dL (31-37); MEAN CORPUSCULAR VOLUME 103 fL (79-100); MONO % 12 % (0-9); NEUT % 72 % (31-73); PLATELET COUNT 169 x10^3/uL (140-400); RED BLOOD COUNT 3.01 x10^6/uL (3.50-5.40); RED CELL DISTRIBUTION WIDTH 12.8 % (11.5-14.5); WHITE BLOOD COUNT 8.4 x10^3/uL (4.0-11.0)
[2021-08-11 05:11] LABS: CALCIUM 7.9 mg/dL (8.5-10.1); CREATININE 2.3 mg/dL (0.6-1.0); POTASSIUM 3.5 mmol/L (3.5-5.1)
[2021-08-11] MEDS ORDERED: METOPROLOL IV PUSH 5 MG/5 ML VIAL. IVP ONE ×2 (06:00→13:00)
[2021-08-11] MEDS: LEVOTHYROXINE 25 MCG TABLET. PO SCH (06:02)
[2021-08-11 07:00] VITALS: BP 145/68
[2021-08-11] MEDS: VERAPAMIL 40 MG TABLET. PO SCH (08:25)
--- NOTE | 2021-08-11 08:28 | RAD ---
EXAM: Renal sonogram. HISTORY: Renal insufficiency. TECHNIQUE: Sonographic imaging of the kidneys and bladder was performed. COMPARISON: None. FINDINGS: The kidneys are normal in size. There are bilateral renal cysts, the largest of which measu res 2.1 cm on the right. There is a 1.7 cm partially exophytic cyst with internal echoes within the l ateral mid zone of the right kidney which may contain debris. No convincing solid lesion is seen. The re is echogenic renal parenchyma. There is no hydronephrosis. The bladder is distended. There is no b ladder wall thickening. IMPRESSION: 1. Echogenic kidneys. This can be seen with medical renal disease. 2. Small bilateral renal cysts, one of which measuring 1.7 cm within the right kidney may be a compli cated cyst with internal debris. Renal sonography can be performed in 6 months to confirm benignity. Electronically signed by: Kailyn Calderon MD (08/11/2021 8:26 AM) [id number]
--- NOTE | 2021-08-11 10:11 | PDOC ---
DATE OF SERVICE DATE: 08/11/21 TIME: 10:11 SUBJECTIVE ROS Resting comfortably, No complaints . Hoping to go home . Sister In law at bedside OBJECTIVE Vital Signs Vital Signs Date Time Temp Pulse Resp B/P (MAP) Pulse Ox O2 Delivery O2 Flow Rate FiO2 08/11/21 08:25 128 167/87 08/11/21 07:00 97.5 18 95 Room Air 97.5 I & 0 Intake and Output 08/11/21 07:00 Intake Total 120 ml Output Total 600 ml Balance -480 ml Intake Oral 120 ml Output Urine Total 600 ml # Voids 6 PHYSICAL EXAM Physical Exam General: No acute distress HEEN OM moist, On RA Lungs: Clear to auscultation, non labored Heart: S1S2 Abdomen: Soft, NT Extremities: No bilateral LE edema Skin: No Rash Neuro: Grossly Normal No [place] DIAGNOSIS/ASSESSMENT Assessment & Plan KAYLEY- suspect dehydration/ Mild Rhabdo ; non Oliguric, Improving renal function. Continue IVF . Baseline renal function/Cr unknown. Pt reports she saw [employer] Apprentice in [place] - cant recall details . Obtain records from PCP. Supportive care, Strict I/O , Avoid Nephrotoxins. Monitor RhabdoMyolysis Mild ? CKD Baseline Unavailable. Renal US Echogenic kidneys can be seen with medical renal disease. Small bilateral renal cysts, one of which measuring 1.7 cm within the right kidney may be a complicated cyst with internal debris. Renal sonography in 6 months to confirm benignity. Please send the results to PCP at discharge COMMENT/RELEVANT DATA Meds Current Medications Medications (Trade) Dose Ordered Sig/Kevin Start Time Stop Time Status Last Admin Dose Admin Acetaminophen (Tylenol) 650 mg PRN Q4HRS PRN 08/09/21 14:00 08/10/21 13:59 DC 08/10/21 07:57 650 MG Ceftriaxone Sodium (Rocephin) 1 gm Q24H 08/09/21 21:00 08/10/21 22:14 1 GM Levothyroxine Sodium (Synthroid) 25 mcg DAILY06 08/10/21 06:00 08/11/21 06:02 25 MCG Metoprolol Tartrate (Lopressor Vial) 5 mg 1X ONCE 08/11/21 06:00 08/11/21 06:01 DC 08/11/21 06:03 5 MG Sodium Chloride 1,000 ml @ 75 mls/hr [id number] 08/09/21 20:00 08/10/21 09:20 75 MLS/HR Verapamil HCl (Calan) 40 mg DAILY 08/10/21 09:00 08/11/21 08:25 40 MG Lab Laboratory Tests Test 08/11/21 04:05 White Blood Count 8.4 x10^3/uL (4.0-11.0) Red Blood Count 3.01 x10^6/uL (3.50-5.40) Hemoglobin 10.4 g/dL (12.0-15.5) Hematocrit 31.0 % (36.0-47.0) Mean Corpuscular Volume 103 fL (79-100) Mean Corpuscular Hemoglobin 35 pg (25-35) Mean Corpuscular Hemoglobin Concent 33 g/dL (31-37) Red Cell Distribution Width 12.8 % (11.5-14.5) Platelet Count 169 x10^3/uL (140-400) Neutrophils (%) (Auto) 72 % (31-73) Lymphocytes (%) (Auto) 15 % (24-48) Monocytes (%) (Auto) 12 % (0-9) Eosinophils (%) (Auto) 1 % (0-3) Basophils (%) (Auto) 0 % (0-3) Neutrophils # (Auto) 6.0 x10^3/uL (1.8-7.7) Lymphocytes # (Auto) 1.3 x10^3/uL (1.0-4.8) Monocytes # (Auto) 1.0 x10^3/uL (0.0-1.1) Eosinophils # (Auto) 0.1 x10^3/uL (0.0-0.7) Basophils # (Auto) 0.0 x10^3/uL (0.0-0.2) Sodium Level 145 mmol/L (136-145) Potassium Level 3.5 mmol/L (3.5-5.1) Chloride Level 114 mmol/L (98-107) Carbon Dioxide Level 21 mmol/L (21-32) Anion Gap 10 (6-14) Blood Urea Nitrogen 48 mg/dL (7-20) Creatinine 2.3 mg/dL (0.6-1.0) Estimated GFR (Cockcroft-Gault) 20.0 Glucose Level 118 mg/dL (70-99) Calcium Level 7.9 mg/dL (8.5-10.1) Results All relevant outside records, renal labs, imaging studies, telemetry/EKG's were reviewed. Justicifation of Admission Dx: Justifications for Admission: Justification of Admission Dx: N/A SONYA MURILLO MD Aug 11, 2021 10:11
[2021-08-11 11:00] VITALS: BP 141/84
--- NOTE | 2021-08-11 12:11 | PDOC ---
[employer] PROGRESS NOTE Date of Service DOS: DATE: 08/11/21 TIME: 12:11 Chief Complaint Chief Complaint Found down Rhabdomyolysis Metabolic encephalopathy Acute on chronic renal failure, leukocytosis, azotemia and advanced age History of :arrhythmia, arthritis, dementia, hypertension, hypothyroidism, chronic renal insufficiency, uterine cancer, skin cancer, cataracts, retinal detachment, cancer surgery. History of Present Illness History of Present Illness 08/11/2021 Patient seen and examined She is still pleasantly confused Up in chair but stable Chart reviewed Discussed with RN The patient is a pleasant elderly female who I believe lives alone. She was found down. She has bruises all over. She has some skin breakdown. She has a burn on her left hand that appears to possibly be trying to heal, but it looks similar to a skin cancer as well, although she states that it is a burn. While in the ER, we noticed that she is in renal failure with a creatinine of 2.7. I suspect this is chronic. She has some azotemia with a BUN of 54. Her white count is also high at 15. She has a slightly elevated blood pressure 166/81. I discussed the case with ER physician. We are going to admit the patient and consult social science professor for possible long-term care placement, do some wound care and consult Nephrology regarding her acute on chronic renal failure. I have also placed on some empiric IV antibiotics. 08/10 Patient evaluated and examined at bedside. Really cannot provide much history she is very lethargic. Continue current fluids closely monitor renal function. Continue IV antibiotics. Cultures pending. Nephrology following. Vitals/I&O Vitals/I&O: Vital Signs Date Time Temp Pulse Resp B/P (MAP) Pulse Ox O2 Delivery O2 Flow Rate FiO2 08/11/21 11:00 98.3 105 18 141/84 (103) 98 Room Air 98.3 I & O 08/10/21 08/10/21 08/11/21 15:00 23:00 07:00 Intake Total 120 ml Output Total 600 ml Balance -480 ml Physical Exam General: Cooperative, No acute distress Heart: Regular rate Lungs: Clear Abdomen: Normal bowel sounds, Soft, No tenderness Extremities: No clubbing, No edema, Normal pulses Skin: No breakdown, No significant lesion, Other (BRUISING DIFFUSELY UE) Labs Labs: Laboratory Tests Test 10/25/21 04:05 White Blood Count 8.4 x10^3/uL (4.0-11.0) Red Blood Count 3.01 x10^6/uL (3.50-5.40) Hemoglobin 10.4 g/dL (12.0-15.5) Hematocrit 31.0 % (36.0-47.0) Mean Corpuscular Volume 103 fL (79-100) Mean Corpuscular Hemoglobin 35 pg (25-35) Mean Corpuscular Hemoglobin Concent 33 g/dL (31-37) Red Cell Distribution Width 12.8 % (11.5-14.5) Platelet Count 169 x10^3/uL (140-400) Neutrophils (%) (Auto) 72 % (31-73) Lymphocytes (%) (Auto) 15 % (24-48) Monocytes (%) (Auto) 12 % (0-9) Eosinophils (%) (Auto) 1 % (0-3) Basophils (%) (Auto) 0 % (0-3) Neutrophils # (Auto) 6.0 x10^3/uL (1.8-7.7) Lymphocytes # (Auto) 1.3 x10^3/uL (1.0-4.8) Monocytes # (Auto) 1.0 x10^3/uL (0.0-1.1) Eosinophils # (Auto) 0.1 x10^3/uL (0.0-0.7) Basophils # (Auto) 0.0 x10^3/uL (0.0-0.2) Sodium Level 145 mmol/L (136-145) Potassium Level 3.5 mmol/L (3.5-5.1) Chloride Level 114 mmol/L (98-107) Carbon Dioxide Level 21 mmol/L (21-32) Anion Gap 10 (6-14) Blood Urea Nitrogen 48 mg/dL (7-20) Creatinine 2.3 mg/dL (0.6-1.0) Estimated GFR (Cockcroft-Gault) 20.0 Glucose Level 118 mg/dL (70-99) Calcium Level 7.9 mg/dL (8.5-10.1) Assessment and Plan Assessmemt and Plan Problems Medical Problems: (1) Acute renal failure (ARF) Status: Acute (2) Fall at home Status: Acute (3) Rhabdomyolysis Status: Acute Found down Rhabdomyolysis Metabolic encephalopathy Acute on chronic renal failure, leukocytosis, azotemia and advanced age History of :arrhythmia, arthritis, dementia, hypertension, hypothyroidism, chronic renal insufficiency, uterine cancer, skin cancer, cataracts, retinal detachment, cancer surgery. Plan Cardiac monitoring IV fluids Home meds DVT prophylaxis Full code Encourage p.o. intake Wound care Appreciate subspecialist input Discharge disposition pending she may need long-term care question Comment Review of Relevant I have reviewed the following items petros (where applicable) has been applied. Medications: Current Medications Medications (Trade) Dose Ordered Sig/Kevin Route PRN Reason Start Time Stop Time Status Last Admin Dose Admin Metoprolol Tartrate (Lopressor Vial) 5 mg 1X ONCE IVP 08/11/21 06:00 08/11/21 06:01 DC 08/11/21 06:03 Justifications for Admission Other Justification MARYAM CRAWFORD III DO Aug 11, 2021 12:11
--- NOTE | 2021-08-11 12:47 | NUR ---
SS following for discharge planning. SS reviewed pt chart and discussed with pt RN. Pt is from home and is currently on room air. Pt on IV Rocephin. Cardiology consulted. PT/OT ordered. PT recommended usp unit. SS met with pt and pt's granddaughter in room to discuss discharge planning and usp unit. Pt and granddaughter agreeable to usp unit and requested referral be phoned and faxed to [facility], ; fax [phone]. COVID19 test requested for placement. Pt has not been vaccinated for COVID19. Pt requesting DPOA and DNR be completed. Pt signed outside the hospital DNR form. DPOA paperwork completed and notarized. Copy placed in chart. SS phoned and faxed referral to [facility] as requested. SS will continue to follow for discharge planning. Addendum: 08/11/21 at 1322 by ROSEANN MILES SS Pt insurance out of network at [facility]. Pt's family requesting referral to [facility], ; fax [phone]. SS phoned and faxed referral as requested.
[2021-08-11] MEDS: IV NORMAL SALINE 1000ML BAG 1,000 ML IV SCH (13:37)
[2021-08-11 15:00] VITALS: BP 127/61
--- NOTE | 2021-08-11 17:03 | PDOC2 ---
LAURENCE MCMULLEN [employer]OPELLER LAYOUT WORKER 08/11/21 1703: CARDIAC CONSULT DATE OF CONSULT Date of Consult DATE: 08/11/21 TIME: 16:46 REASON FOR CONSULT Reason for Consult: AFIB REFERRING PHYSICIAN Referring Physician: Dr. Martinez SOURCE Source: Chart review, Patient HISTORY OF PRESENT ILLNESS HISTORY OF PRESENT ILLNESS This is an 89 yo female who presented secondary to fall. Patient was found down on the bathroom floor by family member. Was incontinent of both bowel and bladder. Patient is unsure how she got on the floor and cannot recall falling. Thinks she may have laid on the floor overnight. She was last seen by family the afternoon before arrival. Granddaughter reports she did not even know she was on the floor when she was found. Has baseline confusion. She went into AFIB with RVR overnight, which prompted this consult. Patient repots h/o "irregular heart rhythm" since she was a child, but denies any history of AFIB/flutter specifically. Is on Verapamil at home. Follows with primary care provider. Does not see regional education manager. No recent cardiac workup. Granddaughter reports multiple falls in recent past. PAST MEDICAL HISTORY Cardiovascular: HTN CENTRAL NERVOUS SYSTEM: Dementia Heme/Onc: Cancer Endocrine: Hypothyroidism PAST SURGICAL HISTORY Past Surgical History: Hysterectomy, Other (knee surgery ) FAMILY HISTORY Family History: Other (AFIB ) SOCIAL HISTORY Smoke: No ALCOHOL: none Drugs: None Lives: Alone CURRENT MEDICATIONS CURRENT MEDICATIONS Current Medications Medications (Trade) Dose Ordered Sig/Kevin Route PRN Reason Start Time Stop Time Status Last Admin Dose Admin Metoprolol Tartrate (Lopressor Vial) 5 mg 1X ONCE IVP 08/11/21 06:00 08/11/21 06:01 DC 08/11/21 06:03 Metoprolol Tartrate (Lopressor Vial) 5 mg 1X ONCE IVP 08/11/21 13:00 08/11/21 13:01 DC 08/11/21 13:37 ALLERGIES ALLERGIES: Coded Allergies: lisinopril (Verified Allergy, Intermediate, 08/09/21) ROS Review of System 14 point ROS conducted with pertinent positives noted above in HPI, although limited due to dementia PHYSICAL EXAM General: Alert, Cooperative, No acute distress, Other (oriented to person and place ) Lungs: Clear to auscultation Heart: Other (AFIB, with RVR) Abdomen: Soft Extremities: Other (trace bilateral LE edema ) Skin: No significant lesion Neuro: Normal speech, Sensation intact Psych/Mental Status: Mood NL, Other (forgetful ) MUSCULOSKELETAL: Osteoarthritic changes both hands VITALS/I&O VITALS/I&O: Vital Signs Date Time Temp Pulse Resp B/P (MAP) Pulse Ox O2 Delivery O2 Flow Rate FiO2 08/11/21 15:00 98.5 81 18 127/61 (83) 95 Room Air 98.5 I & O 08/10/21 08/10/21 08/11/21 15:00 23:00 07:00 Intake Total 120 ml Output Total 600 ml Balance -480 ml LABS Lab: Laboratory Tests Test 08/11/21 04:05 White Blood Count 8.4 x10^3/uL (4.0-11.0) Red Blood Count 3.01 x10^6/uL (3.50-5.40) L Hemoglobin 10.4 g/dL (12.0-15.5) L Hematocrit 31.0 % (36.0-47.0) L Mean Corpuscular Volume 103 fL (79-100) H Mean Corpuscular Hemoglobin 35 pg (25-35) Mean Corpuscular Hemoglobin Concent 33 g/dL (31-37) Red Cell Distribution Width 12.8 % (11.5-14.5) Platelet Count 169 x10^3/uL (140-400) Neutrophils (%) (Auto) 72 % (31-73) Lymphocytes (%) (Auto) 15 % (24-48) L Monocytes (%) (Auto) 12 % (0-9) H Eosinophils (%) (Auto) 1 % (0-3) Basophils (%) (Auto) 0 % (0-3) Neutrophils # (Auto) 6.0 x10^3/uL (1.8-7.7) Lymphocytes # (Auto) 1.3 x10^3/uL (1.0-4.8) Monocytes # (Auto) 1.0 x10^3/uL (0.0-1.1) Eosinophils # (Auto) 0.1 x10^3/uL (0.0-0.7) Basophils # (Auto) 0.0 x10^3/uL (0.0-0.2) Sodium Level 145 mmol/L (136-145) Potassium Level 3.5 mmol/L (3.5-5.1) Chloride Level 114 mmol/L (98-107) H Carbon Dioxide Level 21 mmol/L (21-32) Anion Gap 10 (6-14) Blood Urea Nitrogen 48 mg/dL (7-20) H Creatinine 2.3 mg/dL (0.6-1.0) H Estimated GFR (Cockcroft-Gault) 20.0 Glucose Level 118 mg/dL (70-99) H Calcium Level 7.9 mg/dL (8.5-10.1) L Laboratory Tests 08/11/21 04:05 Laboratory Tests 08/11/21 04:05 ASSESSMENT/PLAN ASSESSMENT/PLAN 1. Weakness, fall; was found down on bathroom floor by family. Unknown how she got there. Family reports multiple recent falls. CT head without acute findings 2. KAYLEY; IVFs 3. Rhabdomyolysis 4. 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 family reporting h/o "rapid heart rate". on verapamil at home. rate remains elevated. 5. Hypertension; controlled 6. Hypothyroidism Recommendations Metoprolol IVP x1 now Add scheduled metoprolol Add ASA therapy. Poor candidate for OAC given frequent falls Baseline echo Ongoing IVFs TSH level PT/OT Supportive care SUZY SINGER MD 08/11/21 1715: CARDIAC CONSULT ASSESSMENT/PLAN ASSESSMENT/PLAN The patient was seen and interviewed as well as examined at the bedside. The chart was reviewed. The case was discussed. Agree with the plan of care. LAURENCE MCMULLEN APRN Aug 11, 2021 17:03 SUZY SINGER MD Aug 11, 2021 17:15
[2021-08-11 19:00] VITALS: BP 136/80
[2021-08-11] MEDS: METOPROLOL TART IMMED RELEASE 25 MG TABLET. PO SCH (20:58)
[2021-08-11 23:00] VITALS: BP 159/87
[2021-08-12] MEDS: IV NORMAL SALINE 1000ML BAG 1,000 ML IV SCH (01:20)
[2021-08-12 03:00] VITALS: BP_SYST 127; BP_SYST 141; BP_DIAS 61; BP_DIAS 88
[2021-08-12] MEDS: LEVOTHYROXINE 25 MCG TABLET. PO SCH (06:01)
[2021-08-12 06:44] LABS: BASO % 1 % (0-3); EOS # 0.1 x10^3/uL (0.0-0.7); EOS % 2 % (0-3); HEMATOCRIT 30.7 % (36.0-47.0); HEMOGLOBIN 10.2 g/dL (12.0-15.5); LYMPH # 1.3 x10^3/uL (1.0-4.8); LYMPH % 20 % (24-48); MEAN CORPUSCULAR HEMOGLOBIN 34 pg (25-35); MEAN CORPUSCULAR HGB CONC 33 g/dL (31-37); MEAN CORPUSCULAR VOLUME 103 fL (79-100); MONO # 0.8 x10^3/uL (0.0-1.1); MONO % 12 % (0-9); NEUT # 4.3 x10^3/uL (1.8-7.7); NEUT % 66 % (31-73); PLATELET COUNT 183 x10^3/uL (140-400); RED BLOOD COUNT 2.98 x10^6/uL (3.50-5.40); RED CELL DISTRIBUTION WIDTH 12.9 % (11.5-14.5); WHITE BLOOD COUNT 6.5 x10^3/uL (4.0-11.0)
[2021-08-12 06:57] LABS: CALCIUM 7.9 mg/dL (8.5-10.1); CREATININE 1.9 mg/dL (0.6-1.0); GFR 24.9; POTASSIUM 3.8 mmol/L (3.5-5.1)
[2021-08-12 07:00] VITALS: BP 148/103
--- NOTE | 2021-08-12 07:53 | PDOC ---
[employer] PROGRESS NOTE Date of Service DOS: DATE: 08/12/21 TIME: 07:53 Chief Complaint Chief Complaint Found down Rhabdomyolysis Metabolic encephalopathy Acute on chronic renal failure Leukocytosis Azotemia and advanced age History of :arrhythmia - had afib with RVR. Cardiology consulted. Cont home v erapamil and add metoprolol arthritis, dementia, hypertension, hypothyroidism, chronic renal insufficiency, uterine cancer, skin cancer, cataracts, retinal detachment, cancer surgery. History of Present Illness History of Present Illness Heart rate better controlled with addition of metoprolol. Still pleasantly confused. Creatinine improved to 1.9. 08/11: Patient seen and examined. She is still pleasantly confused Ms Boswell is an 89yo F with PMHx dementia, hypothyroidism, afib who believe lives alone. She was found down. She has bruises all over. She has some skin breakdown. She has a burn on her left hand that appears to possibly be trying to heal, but it looks similar to a skin cancer as well, although she states that it is a burn. While in the ER, we noticed that she is in renal failure with a creatinine of 2.7. I suspect this is chronic. She has some azotemia with a BUN of 54. Her white count is also high at 15. She has a slightly elevated blood pressure 166/81. I discussed the case with ER physician. We are going to admit the patient and consult nursing home social worker for possible long-term care placement, do some wound care and consult Nephrology regarding her acute on chronic renal failure. I have also placed on some empiric IV antibiotics. 08/10: Patient evaluated and examined at bedside. Really cannot provide much history she is very lethargic. Continue current fluids closely monitor renal function. Continue IV antibiotics. Cultures pending. Nephrology following. Vitals/I&O Vitals/I&O: Vital Signs Date Time Temp Pulse Resp B/P (MAP) Pulse Ox O2 Delivery O2 Flow Rate FiO2 08/12/21 03:00 98.6 114 20 141/88 (105) 95 98.6 08/11/21 20:15 Room Air I & O 08/11/21 08/11/21 08/12/21 15:00 23:00 07:00 Intake Total 150 ml 120 ml 100 ml Output Total 300 ml 650 ml Balance 150 ml -180 ml -550 ml Physical Exam General: Alert, Cooperative, No acute distress, Other (oriented to person and place ) Heart: Other (AFIB, with RVR) Lungs: Clear Abdomen: Soft Extremities: Other (trace bilateral LE edema ) Skin: No significant lesion Labs Labs: Laboratory Tests Test 08/12/21 06:30 White Blood Count 6.5 x10^3/uL (4.0-11.0) Red Blood Count 2.98 x10^6/uL (3.50-5.40) Hemoglobin 10.2 g/dL (12.0-15.5) Hematocrit 30.7 % (36.0-47.0) Mean Corpuscular Volume 103 fL (79-100) Mean Corpuscular Hemoglobin 34 pg (25-35) Mean Corpuscular Hemoglobin Concent 33 g/dL (31-37) Red Cell Distribution Width 12.9 % (11.5-14.5) Platelet Count 183 x10^3/uL (140-400) Neutrophils (%) (Auto) 66 % (31-73) Lymphocytes (%) (Auto) 20 % (24-48) Monocytes (%) (Auto) 12 % (0-9) Eosinophils (%) (Auto) 2 % (0-3) Basophils (%) (Auto) 1 % (0-3) Neutrophils # (Auto) 4.3 x10^3/uL (1.8-7.7) Lymphocytes # (Auto) 1.3 x10^3/uL (1.0-4.8) Monocytes # (Auto) 0.8 x10^3/uL (0.0-1.1) Eosinophils # (Auto) 0.1 x10^3/uL (0.0-0.7) Basophils # (Auto) 0.0 x10^3/uL (0.0-0.2) Sodium Level 146 mmol/L (136-145) Potassium Level 3.8 mmol/L (3.5-5.1) Chloride Level 115 mmol/L (98-107) Carbon Dioxide Level 21 mmol/L (21-32) Anion Gap 10 (6-14) Blood Urea Nitrogen 43 mg/dL (7-20) Creatinine 1.9 mg/dL (0.6-1.0) Estimated GFR (Cockcroft-Gault) 24.9 Glucose Level 118 mg/dL (70-99) Calcium Level 7.9 mg/dL (8.5-10.1) Assessment and Plan Assessmemt and Plan Problems Medical Problems: (1) Acute renal failure (ARF) Status: Acute (2) Fall at home Status: Acute (3) Rhabdomyolysis Status: Acute Comment Review of Relevant I have reviewed the following items petros (where applicable) has been applied. Medications: Current Medications Medications (Trade) Dose Ordered Sig/Kevin Route PRN Reason Start Time Stop Time Status Last Admin Dose Admin Metoprolol Tartrate (Lopressor Vial) 5 mg 1X ONCE IVP 08/11/21 13:00 08/11/21 13:01 DC 08/11/21 13:37 Metoprolol Tartrate (Lopressor) 25 mg BID PO 08/11/21 21:00 08/11/21 20:58 Justifications for Admission Other Justification PATI ZELAYA MD Aug 12, 2021 07:53
[2021-08-12] MEDS ORDERED: ACETAMINOPHEN 325 MG TABLET. PO PRN (08:45)
[2021-08-12] MEDS ORDERED: ONDANSETRON PF 4 MG/2 ML VIAL. IVP PRN (08:45)
[2021-08-12] MEDS ORDERED: traMADol 50 MG TABLET PO PRN (08:45)
[2021-08-12] MEDS: VERAPAMIL 40 MG TABLET. PO SCH (09:55)
[2021-08-12] MEDS: METOPROLOL TART IMMED RELEASE 25 MG TABLET. PO SCH ×2 (09:55→20:38)
[2021-08-12] MEDS: ASPIRIN ENTERIC COATED 81 MG TABLET.DR. PO SCH (09:55)
--- NOTE | 2021-08-12 10:27 | CARD ---
MR#: [id number] Date of Study: 08/12/2021 Ordering Physician: LAURENCE MCMULLEN, Referring Physician: LAURENCE MCMULLEN, Tech: Nitza Bear [facility] APPROVED REPORT EXAM: Two-dimensional and M-mode echocardiogram with Doppler and color Doppler. Other Information Quality : Technically LimitedHR: 148bpm Rhythm : 48 INDICATION Atrial Fibrillation RISK FACTORS Hypertension Obesity 2D DIMENSIONS RVDd3.2 (2.9-3.5cm)Left Atrium(2D)3.0 (1.6-4.0cm) IVSd1.7 (0.7-1.1cm)Aortic Root(2D)3.3 (2.0-3.7cm) LVDd3.4 (3.9-5.9cm)LVOT Diameter2.2 (1.8-2.4cm) PWd1.6 (0.7-1.1cm)LVDs2.6 (2.5-4.0cm) FS (%) 23.0 %SV21.9 ml LVEF(%)47.3 (>50%) Aortic Valve AoV Peak Lanre.131.8cm/sAoV VTI22.3cm AO Peak GR.7.0mmHgLVOT Peak Lanre.96.6cm/s AO Mean GR.3mmHgAVA (VMAX)2.84cm2 Pulmonary Valve PV Peak Zrylbocs754.6cm/s Tricuspid Valve TR P. Bytepwqb957et/sTR Peak Gr.20mmHg LEFT VENTRICLE The left ventricle is normal size. There is moderate concentric left ventricular hypertrophy. The lef t ventricular systolic function is normal. EF 55% There is normal LV segmental wall motion. Tissue Do ppler imaging reveals moderate left ventricular diastolic dysfunction. RIGHT VENTRICLE The right ventricle is normal size. The right ventricle is mildly hypertrophied. The right ventricula r systolic function is normal. ATRIA The left atrium is mildly to moderately dilated. The right atrium is mildly dilated. The interatrial septum is intact with no evidence for an atrial septal defect or patent foramen ovale as noted on 2-D or Doppler imaging. AORTIC VALVE The aortic valve is normal in structure and function. Doppler and Color Flow revealed mild aortic reg urgitation. There is no significant aortic valvular stenosis. MITRAL VALVE The mitral valve is normal in structure and function. There is no evidence of mitral valve prolapse. There is no mitral valve stenosis. Doppler and Color-flow revealed trace to mild mitral regurgitation . TRICUSPID VALVE The tricuspid valve is normal in structure and function. Doppler and Color Flow revealed mild tricusp id regurgitation. Estimated PAP 30 mmHg. There is no tricuspid valve stenosis. PULMONIC VALVE Doppler and Color Flow revealed no pulmonic valvular regurgitation. There is no pulmonic valvular monisha nosis. GREAT VESSELS The aortic root is normal in size. The ascending aorta is normal in size. The IVC is normal in size a nd collapses <50% with inspiration. PERICARDIAL EFFUSION There is no evidence of significant pericardial effusion. Critical Notification Critical Value: No <Conclusion> There is moderate concentric left ventricular hypertrophy. The left ventricular systolic function is normal. EF 55% There is normal LV segmental wall motion. Signed by : Blane Jarvis, Electronically Approved : 08/12/2021 10:27:06
[2021-08-12 11:00] VITALS: BP 137/84
--- NOTE | 2021-08-12 11:05 | NUR ---
SS following up with discharge planning. SS reviewed pt chart and discussed with pt RN. Pt is currently on room air. COVID19 negative. PT/OT recommended [facility] unit. SS still awaiting acceptance decision from [facility], ; fax [phone] ([facility]). SS left voicemail's for [facility] today inquiring about acceptance decision. SS contacted pt's granddaughter, Regla, , and discussed. Pt's granddaughter agreeable to referral to [facility], ; fax [phone]. SS phoned and faxed referral to [facility]. SS will continue to follow for discharge planning. Addendum: 08/12/21 at 1352 by ROSEANN MILES SS Pt accepted at [facility] pending insurance approval.
--- NOTE | 2021-08-12 11:15 | PDOC ---
DATE OF SERVICE DATE: 08/12/21 TIME: 11:11 SUBJECTIVE ROS Resting comfortably, No complaints . OBJECTIVE Vital Signs Vital Signs Date Time Temp Pulse Resp B/P (MAP) Pulse Ox O2 Delivery O2 Flow Rate FiO2 08/12/21 09:55 132 148/103 08/12/21 07:00 97.7 18 95 Room Air 97.7 I & 0 Intake and Output 08/12/21 07:00 Intake Total 370 ml Output Total 950 ml Balance -580 ml Intake Oral 370 ml Output Urine Total 950 ml # Voids 6 # Bowel Movements 1 PHYSICAL EXAM Physical Exam General: No acute distress HEEN OM moist, On RA Lungs: Clear to auscultation, non labored Heart: S1S2 Abdomen: Soft, NT Extremities: No bilateral LE edema Skin: No Rash Neuro: Grossly Normal No Norton DIAGNOSIS/ASSESSMENT Assessment & Plan KAYLEY- suspect dehydration/ Mild Rhabdo ; non Oliguric, Improving renal function cREAT 1.9 TODAY Supportive care, Strict I/O , Avoid Nephrotoxins including NSAID's . Monitor. On Aleve QD as per PCP med list . HyperNatremia Mild. DC IVF, Encourage PO fluid intake RhabdoMyolysis Mild POA CKD stage 3 B/4- Obtained and reviewed records from PCP - Baseline Creat 2.2- 2.3 at least since March 2020 , most recent in April 2021 Cr 2.5 with eGFR < 20 . Renal US Echogenic kidneys can be seen with medical renal disease. Small bilateral renal cysts, one of which measuring 1.7 cm within the right kidney may be a complicated cyst with internal debris. Renal sonography in 6 months to confirm benignity.Please send the results to PCP at discharge FOR FURTHER FU DC per PRIMARY. Follow up with Renal as OP (Non urgent/Routine ) COMMENT/RELEVANT DATA Meds Current Medications Medications (Trade) Dose Ordered Sig/Kevin Start Time Stop Time Status Last Admin Dose Admin Acetaminophen (Tylenol) 650 mg PRN Q6HRS PRN 08/12/21 08:45 Aspirin (Ecotrin) 81 mg DAILYWBKFT 08/12/21 08:00 08/12/21 09:55 81 MG Ceftriaxone Sodium (Rocephin) 1 gm Q24H 08/09/21 21:00 08/11/21 12:17 DC 08/10/21 22:14 1 GM Levothyroxine Sodium (Synthroid) 25 mcg DAILY06 08/10/21 06:00 08/12/21 06:01 25 MCG Metoprolol Tartrate (Lopressor Vial) 5 mg 1X ONCE 08/11/21 13:00 08/11/21 13:01 DC 08/11/21 13:37 5 MG Metoprolol Tartrate (Lopressor) 25 mg BID 08/11/21 21:00 08/12/21 09:55 25 MG Olanzapine (ZyPREXA ZYDIS) 5 mg PRN BID PRN 08/12/21 08:45 Ondansetron HCl (Zofran) 4 mg PRN Q4HRS PRN 08/12/21 08:45 Sodium Chloride 1,000 ml @ 75 mls/hr [id number] 08/09/21 20:00 08/12/21 08:43 DC 08/12/21 01:20 75 MLS/HR Tramadol HCl (Ultram) 50 mg PRN Q6HRS PRN 08/12/21 08:45 Verapamil HCl (Calan) 40 mg DAILY 08/10/21 09:00 08/12/21 09:55 40 MG Lab Laboratory Tests Test 08/11/21 13:45 08/12/21 06:30 SARS-CoV-2 RNA (RICHARD) Negative (Negative) White Blood Count 6.5 x10^3/uL (4.0-11.0) Red Blood Count 2.98 x10^6/uL (3.50-5.40) Hemoglobin 10.2 g/dL (12.0-15.5) Hematocrit 30.7 % (36.0-47.0) Mean Corpuscular Volume 103 fL (79-100) Mean Corpuscular Hemoglobin 34 pg (25-35) Mean Corpuscular Hemoglobin Concent 33 g/dL (31-37) Red Cell Distribution Width 12.9 % (11.5-14.5) Platelet Count 183 x10^3/uL (140-400) Neutrophils (%) (Auto) 66 % (31-73) Lymphocytes (%) (Auto) 20 % (24-48) Monocytes (%) (Auto) 12 % (0-9) Eosinophils (%) (Auto) 2 % (0-3) Basophils (%) (Auto) 1 % (0-3) Neutrophils # (Auto) 4.3 x10^3/uL (1.8-7.7) Lymphocytes # (Auto) 1.3 x10^3/uL (1.0-4.8) Monocytes # (Auto) 0.8 x10^3/uL (0.0-1.1) Eosinophils # (Auto) 0.1 x10^3/uL (0.0-0.7) Basophils # (Auto) 0.0 x10^3/uL (0.0-0.2) Sodium Level 146 mmol/L (136-145) Potassium Level 3.8 mmol/L (3.5-5.1) Chloride Level 115 mmol/L (98-107) Carbon Dioxide Level 21 mmol/L (21-32) Anion Gap 10 (6-14) Blood Urea Nitrogen 43 mg/dL (7-20) Creatinine 1.9 mg/dL (0.6-1.0) Estimated GFR (Cockcroft-Gault) 24.9 Glucose Level 118 mg/dL (70-99) Calcium Level 7.9 mg/dL (8.5-10.1) Vitamin B12 Level 812 pg/mL (247-911) Results All relevant outside records, renal labs, imaging studies, telemetry/EKG's were reviewed. Justicifation of Admission Dx: Justifications for Admission: Justification of Admission Dx: N/A SONYA MURILLO MD Aug 12, 2021 11:15
[2021-08-12] MEDS ORDERED: LEVO25TA4 PO (12:31)
[2021-08-12] MEDS ORDERED: VERA40TA PO (12:31)
[2021-08-12] MEDS ORDERED: OLAN5TAB7 PO (12:31)
[2021-08-12] MEDS ORDERED: ASPI-886 PO (12:31)
[2021-08-12] MEDS ORDERED: METO25TA4 PO (12:31)
[2021-08-12] MEDS ORDERED: ACET325T21 PO (12:31)
--- NOTE | 2021-08-12 12:32 | SNU/HH DC ---
DISCHARGE ORDERS DISCHARGE INFORMATION: DISCHARGE DATE: Aug 12, 2021 FINAL DIAGNOSIS Problems Medical Problems: (1) Acute renal failure (ARF) Status: Acute (2) Fall at home Status: Acute (3) Rhabdomyolysis Status: Acute CONDITION ON DISCHARGE: Stable CODE STATUS: Code Status: DNR/DNI ALF: SNF STAY <30 DAYS: Yes POST DISCHARGE ORDERS: ACTIVITY ORDERS: Resume previous activity WEIGHT BEARING STATUS: Full weight bearing DIET AFTER DISCHARGE: Cardiac CHECKS AFTER DISCHARGE: CHECKS AFTER DISCHARGE: Check blood press - daily, Check your Temp as needed, Weigh Yourself Daily FOLLOW-UP: Additional Instructions: Call to follow up with cardiology [id number], [address] [place] [address] TREATMENT/EQUIPMENT ORDERS: Physical Therapy For: Evalulation/Treatment Occupational Therapy For: Evaluation/Treatment DISCHARGE MEDICATIONS: Home Meds Active Scripts Aspirin (ASPIRIN EC) 81 Mg Tablet.dr, 81 MG PO DAILYWBKFT for Afib for 30 Days, #30 TAB.SR 11 Refills Prov:PATI ZELAYA MD 08/12/21 Levothyroxine Sodium (LEVOTHYROXINE SODIUM) 25 Mcg Tablet, 25 MCG PO DAILY06 for Hypothyroidism for 30 Days, #30 TAB 5 Refills Prov:PATI ZELAYA MD 08/12/21 Olanzapine (OLANZAPINE ODT) 5 Mg Tab.rapdis, 5 MG PO PRN BID PRN for ANXIETY / AGITATION for 30 Days, #60 TAB 5 Refills Prov:PATI ZELAYA MD 08/12/21 Acetaminophen (ACETAMINOPHEN) 325 Mg Tablet, 650 MG PO PRN Q6HRS PRN for MILD PAIN / TEMP > 100.3'F for 30 Days, #120 TAB Prov:PATI ZELAYA MD 08/12/21 Verapamil Hcl (VERAPAMIL HCL) 40 Mg Tablet, 40 MG PO DAILY for Afib for 30 Days, #30 TAB 5 Refills Prov:APTI ZELAYA MD 08/12/21 Metoprolol Tartrate (METOPROLOL TARTRATE) 25 Mg Tablet, 25 MG PO BID for Afib for 30 Days, #60 TAB 5 Refills Prov:PATI ZELAYA MD 08/12/21 PATI ZELAYA MD Aug 12, 2021 12:32
[2021-08-12 15:00] VITALS: BP 161/94
[2021-08-12 19:55] VITALS: BP 133/88
--- NOTE | 2021-08-12 23:15 | PDOC ---
CARDIOLOGY PROGRESS NOTE SUBJECTIVE: No acute events overnight. She denies any chest pain. Sleep comfortably actually prior to our visit. OBJECTIVE: Vital Signs/I&O: Vital Signs Date Time Temp Pulse Resp B/P (MAP) Pulse Ox O2 Delivery O2 Flow Rate FiO2 08/12/21 20:38 102 133/88 08/12/21 19:55 98.3 16 95 Room Air 98.3 I & O 08/11/21 08/11/21 08/12/21 15:00 23:00 07:00 Intake Total 150 ml 120 ml 100 ml Output Total 300 ml 650 ml Balance 150 ml -180 ml -550 ml Objective: GEN.: No apparent distress. Alert and oriented. HEENT: Head is normocephalic, atraumatic NECK: Supple. LUNGS: Clear to auscultation. HEART: irr irr, S1, S2 present. Peripheral pulses intact ABDOMEN: Soft, nontender. Positive bowel sounds. EXTREMITIES: Without any cyanosis. NEUROLOGIC: Normal speech, normal tone PSYCHIATRIC: Normal affect, normal mood. SKIN: No ulcerations CURRENT MEDICATIONS: asa, metoprolol. DIAGNOSTIC TESTING: Labs reviewed Labs: Laboratory Tests 08/12/21 06:30 Laboratory Tests Test 08/12/21 06:30 White Blood Count 6.5 x10^3/uL (4.0-11.0) Red Blood Count 2.98 x10^6/uL (3.50-5.40) L Hemoglobin 10.2 g/dL (12.0-15.5) L Hematocrit 30.7 % (36.0-47.0) L Mean Corpuscular Volume 103 fL (79-100) H Mean Corpuscular Hemoglobin 34 pg (25-35) Mean Corpuscular Hemoglobin Concent 33 g/dL (31-37) Red Cell Distribution Width 12.9 % (11.5-14.5) Platelet Count 183 x10^3/uL (140-400) Neutrophils (%) (Auto) 66 % (31-73) Lymphocytes (%) (Auto) 20 % (24-48) L Monocytes (%) (Auto) 12 % (0-9) H Eosinophils (%) (Auto) 2 % (0-3) Basophils (%) (Auto) 1 % (0-3) Neutrophils # (Auto) 4.3 x10^3/uL (1.8-7.7) Lymphocytes # (Auto) 1.3 x10^3/uL (1.0-4.8) Monocytes # (Auto) 0.8 x10^3/uL (0.0-1.1) Eosinophils # (Auto) 0.1 x10^3/uL (0.0-0.7) Basophils # (Auto) 0.0 x10^3/uL (0.0-0.2) Sodium Level 146 mmol/L (136-145) H Potassium Level 3.8 mmol/L (3.5-5.1) Chloride Level 115 mmol/L (98-107) H Carbon Dioxide Level 21 mmol/L (21-32) Anion Gap 10 (6-14) Blood Urea Nitrogen 43 mg/dL (7-20) H Creatinine 1.9 mg/dL (0.6-1.0) H Estimated GFR (Cockcroft-Gault) 24.9 Glucose Level 118 mg/dL (70-99) H Calcium Level 7.9 mg/dL (8.5-10.1) L Vitamin B12 Level 812 pg/mL (247-911) ASSESSMENT: ASSESSMENT/PLAN ASSESSMENT/PLAN 1. Weakness, fall; was found down on bathroom floor by family. Unknown how she got there. Family reports multiple recent falls. CT head without acute findings 2. KAYLEY; IVFs 3. Rhabdomyolysis 4. 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 family reporting h/o "rapid heart rate". on verapamil at home. rate remains elevated. 5. Hypertension; controlled 6. Hypothyroidism PLAN: 1. Increased Metoprolol to 50mg p.o bid 2. Continue treatment of KAYLEY 3. Will need to discuss with family regarding goals of care, treatment options including cardioversion after anticoagulation and watchman procedure if she is at risk of falls. Supportive care. Thanks Justicifation of Admission Dx: Justifications for Admission: Justification of Admission Dx: N/A SUZY SINGER MD Aug 12, 2021 23:15
[2021-08-12 23:43] VITALS: BP 167/99
[2021-08-13 06:09] LABS: BASO % 1 % (0-3); EOS # 0.1 x10^3/uL (0.0-0.7); EOS % 2 % (0-3); HEMATOCRIT 31.9 % (36.0-47.0); HEMOGLOBIN 10.5 g/dL (12.0-15.5); LYMPH # 1.3 x10^3/uL (1.0-4.8); LYMPH % 19 % (24-48); MEAN CORPUSCULAR HEMOGLOBIN 34 pg (25-35); MEAN CORPUSCULAR HGB CONC 33 g/dL (31-37); MEAN CORPUSCULAR VOLUME 104 fL (79-100); MONO # 0.8 x10^3/uL (0.0-1.1); MONO % 12 % (0-9); NEUT # 4.4 x10^3/uL (1.8-7.7); NEUT % 67 % (31-73); PLATELET COUNT 193 x10^3/uL (140-400); RED BLOOD COUNT 3.08 x10^6/uL (3.50-5.40); RED CELL DISTRIBUTION WIDTH 13.2 % (11.5-14.5); WHITE BLOOD COUNT 6.6 x10^3/uL (4.0-11.0)
[2021-08-13] MEDS: LEVOTHYROXINE 25 MCG TABLET. PO SCH (06:18)
[2021-08-13 06:31] LABS: CALCIUM 8.2 mg/dL (8.5-10.1); CREATININE 2.1 mg/dL (0.6-1.0); GFR 22.2; POTASSIUM 4.8 mmol/L (3.5-5.1)
[2021-08-13 07:00] VITALS: BP 145/85
[2021-08-13] MEDS: VERAPAMIL 40 MG TABLET. PO SCH (08:45)
[2021-08-13] MEDS: ASPIRIN ENTERIC COATED 81 MG TABLET.DR. PO SCH (08:46)
--- NOTE | 2021-08-13 08:59 | PDOC ---
DATE OF SERVICE DATE: 08/13/21 TIME: 08:59 SUBJECTIVE ROS Resting comfortably, No complaints . OBJECTIVE Vital Signs Vital Signs Date Time Temp Pulse Resp B/P (MAP) Pulse Ox O2 Delivery O2 Flow Rate FiO2 08/13/21 08:46 66 145/85 08/13/21 07:00 97.9 18 97 97.9 08/13/21 03:42 Room Air I & 0 Intake and Output 08/13/21 07:00 Output Total 200 ml Balance -200 ml Output Urine Total 200 ml # Voids 7 # Bowel Movements 1 PHYSICAL EXAM Physical Exam General: No acute distress HEEN OM moist, On RA Lungs: Clear to auscultation, non labored Heart: S1S2 Abdomen: Soft, NT Extremities: No bilateral LE edema Skin: No Rash Neuro: Grossly Normal No Norton DIAGNOSIS/ASSESSMENT Assessment & Plan KAYLEY- suspect dehydration/ Mild Rhabdo ; non Oliguric, stable renal function Supportive care, Strict I/O , Avoid Nephrotoxins including NSAID's . Monitor. On Aleve QD as per PCP med list . HyperNatremia Resolved Encourage PO fluid intake RhabdoMyolysis Mild POA CKD stage 3 B/4- Obtained and reviewed records from PCP - Baseline Creat 2.2- 2.3 at least since March 2020 , most recent in April 2021 Cr 2.5 with eGFR < 20 . Renal US Echogenic kidneys can be seen with medical renal disease. Small bilateral renal cysts, one of which measuring 1.7 cm within the right kidney may be a complicated cyst with internal debris. Renal sonography in 6 months to confirm benignity.Please send the results to PCP at discharge FOR FURTHER FU DC per PRIMARY. Follow up with Renal as OP (Non urgent/Routine ) COMMENT/RELEVANT DATA Meds Current Medications Medications (Trade) Dose Ordered Sig/Kevin Start Time Stop Time Status Last Admin Dose Admin Acetaminophen (Tylenol) 650 mg PRN Q6HRS PRN 08/12/21 08:45 Aspirin (Ecotrin) 81 mg DAILYWBKFT 08/12/21 08:00 08/13/21 08:46 81 MG Ceftriaxone Sodium (Rocephin) 1 gm Q24H 08/09/21 21:00 08/11/21 12:17 DC 08/10/21 22:14 1 GM Levothyroxine Sodium (Synthroid) 25 mcg DAILY06 08/10/21 06:00 08/13/21 06:18 25 MCG Metoprolol Tartrate (Lopressor Vial) 5 mg 1X ONCE 08/11/21 13:00 08/11/21 13:01 DC 08/11/21 13:37 5 MG Metoprolol Tartrate (Lopressor) 50 mg BID 08/13/21 09:00 08/13/21 08:46 50 MG Olanzapine (ZyPREXA ZYDIS) 5 mg PRN BID PRN 08/12/21 08:45 Ondansetron HCl (Zofran) 4 mg PRN Q4HRS PRN 08/12/21 08:45 Sodium Chloride 1,000 ml @ 75 mls/hr [id number] 08/09/21 20:00 08/12/21 08:43 DC 08/12/21 01:20 75 MLS/HR Tramadol HCl (Ultram) 50 mg PRN Q6HRS PRN 08/12/21 08:45 Verapamil HCl (Calan) 40 mg DAILY 08/10/21 09:00 08/13/21 08:45 40 MG Lab Laboratory Tests Test 08/13/21 05:40 White Blood Count 6.6 x10^3/uL (4.0-11.0) Red Blood Count 3.08 x10^6/uL (3.50-5.40) Hemoglobin 10.5 g/dL (12.0-15.5) Hematocrit 31.9 % (36.0-47.0) Mean Corpuscular Volume 104 fL (79-100) Mean Corpuscular Hemoglobin 34 pg (25-35) Mean Corpuscular Hemoglobin Concent 33 g/dL (31-37) Red Cell Distribution Width 13.2 % (11.5-14.5) Platelet Count 193 x10^3/uL (140-400) Neutrophils (%) (Auto) 67 % (31-73) Lymphocytes (%) (Auto) 19 % (24-48) Monocytes (%) (Auto) 12 % (0-9) Eosinophils (%) (Auto) 2 % (0-3) Basophils (%) (Auto) 1 % (0-3) Neutrophils # (Auto) 4.4 x10^3/uL (1.8-7.7) Lymphocytes # (Auto) 1.3 x10^3/uL (1.0-4.8) Monocytes # (Auto) 0.8 x10^3/uL (0.0-1.1) Eosinophils # (Auto) 0.1 x10^3/uL (0.0-0.7) Basophils # (Auto) 0.0 x10^3/uL (0.0-0.2) Sodium Level 145 mmol/L (136-145) Potassium Level 4.8 mmol/L (3.5-5.1) Chloride Level 114 mmol/L (98-107) Carbon Dioxide Level 20 mmol/L (21-32) Anion Gap 11 (6-14) Blood Urea Nitrogen 45 mg/dL (7-20) Creatinine 2.1 mg/dL (0.6-1.0) Estimated GFR (Cockcroft-Gault) 22.2 Glucose Level 127 mg/dL (70-99) Calcium Level 8.2 mg/dL (8.5-10.1) Results All relevant outside records, renal labs, imaging studies, telemetry/EKG's were reviewed. Justicifation of Admission Dx: Justifications for Admission: Justification of Admission Dx: N/A SONYA MURILLO MD Aug 13, 2021 08:59
[2021-08-13] MEDS ORDERED: METOPROLOL TART IMMED RELEASE 50 MG TABLET. PO SCH (09:00)
--- NOTE | 2021-08-13 10:04 | NUR ---
SS following up with discharge planning. SS reviewed pt chart and discussed with pt RN. Pt is currently on room air. COVID19 negative. PT/OT recommended fci unit. Pt accepted at [facility], ; fax [phone]. Insurance authorization received. Discharge orders phoned and faxed to [facility]. Pt will discharge today and [facility] to [facility] 1130[facility] Pt, pt's RN, and pt's granddaughter notified. Packet placed on chart.
--- NOTE | 2021-08-13 10:27 | PDOC ---
[employer] PROGRESS NOTE Date of Service DOS: DATE: 08/13/21 TIME: : Chief Complaint Chief Complaint Found down Rhabdomyolysis Metabolic encephalopathy Acute on chronic renal failure Leukocytosis Azotemia and advanced age History of :arrhythmia - had afib with RVR. Cardiology consulted. Cont home v erapamil and add metoprolol arthritis, dementia, hypertension, hypothyroidism, chronic renal insufficiency, uterine cancer, skin cancer, cataracts, retinal detachment, cancer surgery. History of Present Illness History of Present Illness Ms Boswell is an 89yo F with PMHx dementia, hypothyroidism, afib who believe lives alone. She was found down. She has bruises all over. She has some skin breakdown. She has a burn on her left hand that appears to possibly be trying t o heal, but it looks similar to a skin cancer as well, although she states that it is a burn. While in the ER, we noticed that she is in renal failure with a creatinine of 2.7. Per nephrology does have chronic kidney disease, baseline Cr 1.9-2.1. She has some azotemia with a BUN of 54. Her white count is also high at 15. She has a slightly elevated blood pressure 166/81. Admitted fo wound care and consult Nephrology regarding her acute on chronic renal failure. Soon after initial evaluation had Afib with RVR, notes her only home meds are verapamil and levothyroxine. Grand-daughter who is her POA notes some memory issues as well. 08/10: Patient evaluated and examined at bedside. Really cannot provide much history she is very lethargic. Continue current fluids closely monitor renal function. Continue IV antibiotics. Cultures pending. Nephrology following. 08/11: Patient seen and examined. She is still pleasantly confused 08/12: Heart rate better controlled with addition of metoprolol. Still pleasantly confused. Creatinine improved to 1.9. Creatinine stable 2.1. Metoprolol increased to 50 mg twice daily in addition to verapamil. Plan for skilled rehab after discussion with wound care and therapy granddaughter prefers facility in [place], [place]. Vitals/I&O Vitals/I&O: Vital Signs Date Time Temp Pulse Resp B/P (MAP) Pulse Ox O2 Delivery O2 Flow Rate FiO2 08/13/21 08:46 66 145/85 08/13/21 07:00 97.9 18 97 97.9 08/13/21 03:42 Room Air I & O 08/12/21 08/12/21 08/13/21 15:00 23:00 07:00 Output Total 200 ml Balance -200 ml Physical Exam General: Alert, Cooperative, No acute distress, Other (oriented to person and place ) Heart: Other (AFIB, with RVR) Lungs: Clear Abdomen: Soft Extremities: Other (trace bilateral LE edema ) Skin: No significant lesion Labs Labs: Laboratory Tests Test 08/13/21 05:40 White Blood Count 6.6 x10^3/uL (4.0-11.0) Red Blood Count 3.08 x10^6/uL (3.50-5.40) Hemoglobin 10.5 g/dL (12.0-15.5) Hematocrit 31.9 % (36.0-47.0) Mean Corpuscular Volume 104 fL (79-100) Mean Corpuscular Hemoglobin 34 pg (25-35) Mean Corpuscular Hemoglobin Concent 33 g/dL (31-37) Red Cell Distribution Width 13.2 % (11.5-14.5) Platelet Count 193 x10^3/uL (140-400) Neutrophils (%) (Auto) 67 % (31-73) Lymphocytes (%) (Auto) 19 % (24-48) Monocytes (%) (Auto) 12 % (0-9) Eosinophils (%) (Auto) 2 % (0-3) Basophils (%) (Auto) 1 % (0-3) Neutrophils # (Auto) 4.4 x10^3/uL (1.8-7.7) Lymphocytes # (Auto) 1.3 x10^3/uL (1.0-4.8) Monocytes # (Auto) 0.8 x10^3/uL (0.0-1.1) Eosinophils # (Auto) 0.1 x10^3/uL (0.0-0.7) Basophils # (Auto) 0.0 x10^3/uL (0.0-0.2) Sodium Level 145 mmol/L (136-145) Potassium Level 4.8 mmol/L (3.5-5.1) Chloride Level 114 mmol/L (98-107) Carbon Dioxide Level 20 mmol/L (21-32) Anion Gap 11 (6-14) Blood Urea Nitrogen 45 mg/dL (7-20) Creatinine 2.1 mg/dL (0.6-1.0) Estimated GFR (Cockcroft-Gault) 22.2 Glucose Level 127 mg/dL (70-99) Calcium Level 8.2 mg/dL (8.5-10.1) Assessment and Plan Assessmemt and Plan Problems Medical Problems: (1) Acute renal failure (ARF) Status: Acute (2) Fall at home Status: Acute (3) Rhabdomyolysis Status: Acute Comment Review of Relevant I have reviewed the following items petros (where applicable) has been applied. Medications: Current Medications Medications (Trade) Dose Ordered Sig/Kevin Route PRN Reason Start Time Stop Time Status Last Admin Dose Admin Metoprolol Tartrate (Lopressor) 50 mg BID PO 08/13/21 09:00 08/13/21 08:46 Justifications for Admission Other Justification PATI ZELAYA MD Aug 13, 2021 10:27
--- NOTE | 2021-08-13 10:29 | PDOC3 ---
Discharge Summary Visit Information Date of Admission: Aug 09, 2021 Date of Discharge: Aug 13, 2021 Admitting Diagnosis: Fall, rhabo Final Diagnosis Problems Medical Problems: (1) Acute renal failure (ARF) Status: Acute (2) Fall at home Status: Acute (3) Rhabdomyolysis Status: Acute Brief Hospital Course Allergies Allergies Coded Allergies Type Severity Reaction Last Updated Verified lisinopril Allergy Intermediate 08/09/21 Yes Vital Signs Vital Signs Date Time Temp Pulse Resp B/P (MAP) Pulse Ox O2 Delivery O2 Flow Rate FiO2 08/13/21 08:46 66 145/85 08/13/21 07:00 97.9 18 97 97.9 08/13/21 03:42 Room Air Lab Results Laboratory Tests Test 08/11/21 13:45 08/12/21 06:30 08/13/21 05:40 SARS-CoV-2 RNA (RICHARD) Negative (Negative) White Blood Count 6.5 x10^3/uL (4.0-11.0) 6.6 x10^3/uL (4.0-11.0) Red Blood Count 2.98 x10^6/uL (3.50-5.40) 3.08 x10^6/uL (3.50-5.40) Hemoglobin 10.2 g/dL (12.0-15.5) 10.5 g/dL (12.0-15.5) Hematocrit 30.7 % (36.0-47.0) 31.9 % (36.0-47.0) Mean Corpuscular Volume 103 fL (79-100) 104 fL (79-100) Mean Corpuscular Hemoglobin 34 pg (25-35) 34 pg (25-35) Mean Corpuscular Hemoglobin Concent 33 g/dL (31-37) 33 g/dL (31-37) Red Cell Distribution Width 12.9 % (11.5-14.5) 13.2 % (11.5-14.5) Platelet Count 183 x10^3/uL (140-400) 193 x10^3/uL (140-400) Neutrophils (%) (Auto) 66 % (31-73) 67 % (31-73) Lymphocytes (%) (Auto) 20 % (24-48) 19 % (24-48) Monocytes (%) (Auto) 12 % (0-9) 12 % (0-9) Eosinophils (%) (Auto) 2 % (0-3) 2 % (0-3) Basophils (%) (Auto) 1 % (0-3) 1 % (0-3) Neutrophils # (Auto) 4.3 x10^3/uL (1.8-7.7) 4.4 x10^3/uL (1.8-7.7) Lymphocytes # (Auto) 1.3 x10^3/uL (1.0-4.8) 1.3 x10^3/uL (1.0-4.8) Monocytes # (Auto) 0.8 x10^3/uL (0.0-1.1) 0.8 x10^3/uL (0.0-1.1) Eosinophils # (Auto) 0.1 x10^3/uL (0.0-0.7) 0.1 x10^3/uL (0.0-0.7) Basophils # (Auto) 0.0 x10^3/uL (0.0-0.2) 0.0 x10^3/uL (0.0-0.2) Sodium Level 146 mmol/L (136-145) 145 mmol/L (136-145) Potassium Level 3.8 mmol/L (3.5-5.1) 4.8 mmol/L (3.5-5.1) Chloride Level 115 mmol/L (98-107) 114 mmol/L (98-107) Carbon Dioxide Level 21 mmol/L (21-32) 20 mmol/L (21-32) Anion Gap 10 (6-14) 11 (6-14) Blood Urea Nitrogen 43 mg/dL (7-20) 45 mg/dL (7-20) Creatinine 1.9 mg/dL (0.6-1.0) 2.1 mg/dL (0.6-1.0) Estimated GFR (Cockcroft-Gault) 24.9 22.2 Glucose Level 118 mg/dL (70-99) 127 mg/dL (70-99) Calcium Level 7.9 mg/dL (8.5-10.1) 8.2 mg/dL (8.5-10.1) Vitamin B12 Level 812 pg/mL (247-911) Laboratory Tests Test 08/13/21 05:40 White Blood Count 6.6 x10^3/uL (4.0-11.0) Red Blood Count 3.08 x10^6/uL (3.50-5.40) Hemoglobin 10.5 g/dL (12.0-15.5) Hematocrit 31.9 % (36.0-47.0) Mean Corpuscular Volume 104 fL (79-100) Mean Corpuscular Hemoglobin 34 pg (25-35) Mean Corpuscular Hemoglobin Concent 33 g/dL (31-37) Red Cell Distribution Width 13.2 % (11.5-14.5) Platelet Count 193 x10^3/uL (140-400) Neutrophils (%) (Auto) 67 % (31-73) Lymphocytes (%) (Auto) 19 % (24-48) Monocytes (%) (Auto) 12 % (0-9) Eosinophils (%) (Auto) 2 % (0-3) Basophils (%) (Auto) 1 % (0-3) Neutrophils # (Auto) 4.4 x10^3/uL (1.8-7.7) Lymphocytes # (Auto) 1.3 x10^3/uL (1.0-4.8) Monocytes # (Auto) 0.8 x10^3/uL (0.0-1.1) Eosinophils # (Auto) 0.1 x10^3/uL (0.0-0.7) Basophils # (Auto) 0.0 x10^3/uL (0.0-0.2) Sodium Level 145 mmol/L (136-145) Potassium Level 4.8 mmol/L (3.5-5.1) Chloride Level 114 mmol/L (98-107) Carbon Dioxide Level 20 mmol/L (21-32) Anion Gap 11 (6-14) Blood Urea Nitrogen 45 mg/dL (7-20) Creatinine 2.1 mg/dL (0.6-1.0) Estimated GFR (Cockcroft-Gault) 22.2 Glucose Level 127 mg/dL (70-99) Calcium Level 8.2 mg/dL (8.5-10.1) Brief Hospital Course Ms Boswell is an 89yo F with PMHx dementia, hypothyroidism, afib who believe lives alone. She was found down. She has bruises all over. She has some skin breakdown. She has a burn on her left hand that appears to possibly be trying to heal, but it looks similar to a skin cancer as well, although she states that it is a burn. While in the ER, we noticed that she is in renal failure with a creatinine of 2.7. Per nephrology does have chronic kidney disease, baseline Cr 1.9-2.1. She has some azotemia with a BUN of 54. Her white count is also high at 15. She has a slightly elevated blood pressure 166/81. Admitted fo wound care and consult Nephrology regarding her acute on chronic renal failure. Soon after initial evaluation had Afib with RVR, notes her only home meds are verapamil and levothyroxine. Grand-daughter who is her POA notes some memory issues as well. 08/10: Patient evaluated and examined at bedside. Really cannot provide much history she is very lethargic. Continue current fluids closely monitor renal function. Continue IV antibiotics. Cultures pending. Nephrology following. 08/11: Patient seen and examined. She is still pleasantly confused 08/12: Heart rate better controlled with addition of metoprolol. Still pleasantly confused. Creatinine improved to 1.9. Creatinine stable 2.1. Metoprolol increased to 50 mg twice daily in addition to verapamil. Plan for skilled rehab after discussion with wound care and therapy granddaughter prefers facility in [place], [place]. Consults: Nephrology, cardiology Problem list: Found down Rhabdomyolysis Metabolic encephalopathy Acute on chronic renal failure Leukocytosis Azotemia and advanced age Afib with RVR. Cardiology consulted. Cont home verapamil and add metoprolol, prior arrhythmias noted arthritis dementia hypertension, hypothyroidism, chronic renal insufficiency uterine cancer, skin cancer, cataracts, retinal detachment, cancer surgery. Greater than 30 minutes spent on d/c to SNF Discharge Information Condition at Discharge: Improved Follow Up: Weeks Disposition/Orders: D/C to Home Scheduled Aspirin (Aspirin Ec) 81 Mg Tablet., 81 MG PO DAILYWBKFT for Afib for 30 Days, #30 Ref 11 Prescribed by: PATI ZELAYA MD on 08/12/21 1231 Levothyroxine Sodium (Levothyroxine Sodium) 25 Mcg Tablet, 25 MCG PO DAILY06 for Hypothyroidism for 30 Days, #30 Ref 5 Prescribed by: PATI ZELAYA MD on 08/12/21 1231 Metoprolol Tartrate (Metoprolol Tartrate) 25 Mg Tablet, 25 MG PO BID for Afib for 30 Days, #60 Ref 5 Prescribed by: PATI ZELAYA MD on 08/12/21 1231 Verapamil Hcl (Verapamil Hcl) 40 Mg Tablet, 40 MG PO DAILY for Afib for 30 Days, #30 Ref 5 Prescribed by: PATI ZELAYA MD on 08/12/21 1231 Scheduled PRN Acetaminophen (Acetaminophen) 325 Mg Tablet, 650 MG PO PRN Q6HRS PRN for MILD PAIN / TEMP > 100.3'F for 30 Days, #120 Prescribed by: PATI ZELAYA MD on 08/12/21 1231 Olanzapine (Olanzapine Odt) 5 Mg Tab.rapdis, 5 MG PO PRN BID PRN for ANXIETY / AGITATION for 30 Days, #60 Ref 5 Prescribed by: PATI ZELAYA MD on 08/12/21 1231 Justicifation of Admission Dx: Justifications for Admission: Justification of Admission Dx: N/A PATI ZELAYA MD Aug 13, 2021 10:29
[2021-08-13 11:00] VITALS: BP 132/74
--- NOTE | 2021-08-13 11:44 | PDOC ---
CARDIO Progress Notes Vitals Vitals Vital Signs Date Time Temp Pulse Resp B/P (MAP) Pulse Ox O2 Delivery O2 Flow Rate FiO2 08/13/21 11:00 97.9 117 20 132/74 (93) 94 97.9 08/13/21 03:42 Room Air Weight Weight [ ] Input and Output Intake and Output Intake and Output 08/13/21 07:00 Output Total 200 ml Balance -200 ml Output Urine Total 200 ml # Voids 7 # Bowel Movements 1 Laboratory Labs Laboratory Tests Test 08/13/21 05:40 White Blood Count 6.6 x10^3/uL (4.0-11.0) Red Blood Count 3.08 x10^6/uL (3.50-5.40) Hemoglobin 10.5 g/dL (12.0-15.5) Hematocrit 31.9 % (36.0-47.0) Mean Corpuscular Volume 104 fL (79-100) Mean Corpuscular Hemoglobin 34 pg (25-35) Mean Corpuscular Hemoglobin Concent 33 g/dL (31-37) Red Cell Distribution Width 13.2 % (11.5-14.5) Platelet Count 193 x10^3/uL (140-400) Neutrophils (%) (Auto) 67 % (31-73) Lymphocytes (%) (Auto) 19 % (24-48) Monocytes (%) (Auto) 12 % (0-9) Eosinophils (%) (Auto) 2 % (0-3) Basophils (%) (Auto) 1 % (0-3) Neutrophils # (Auto) 4.4 x10^3/uL (1.8-7.7) Lymphocytes # (Auto) 1.3 x10^3/uL (1.0-4.8) Monocytes # (Auto) 0.8 x10^3/uL (0.0-1.1) Eosinophils # (Auto) 0.1 x10^3/uL (0.0-0.7) Basophils # (Auto) 0.0 x10^3/uL (0.0-0.2) Sodium Level 145 mmol/L (136-145) Potassium Level 4.8 mmol/L (3.5-5.1) Chloride Level 114 mmol/L (98-107) Carbon Dioxide Level 20 mmol/L (21-32) Anion Gap 11 (6-14) Blood Urea Nitrogen 45 mg/dL (7-20) Creatinine 2.1 mg/dL (0.6-1.0) Estimated GFR (Cockcroft-Gault) 22.2 Glucose Level 127 mg/dL (70-99) Calcium Level 8.2 mg/dL (8.5-10.1) Justicifation of Admission Dx: Justifications for Admission: Justification of Admission Dx: N/A LAURENCE MCMULLEN APRN Aug 13, 2021 11:44
--- NOTE | 2021-08-13 12:29 | NUR ---
RN left 2 messages with staff at [facility] regarding patient in an attempt to give report. last message left at 1200 as patient was being picked up. explained to [facility] staff DEVANG that she was being picked up and was on her way there. [employer]OR at [facility] said she would have someone call back. still no word from [facility]
== END 2021-08-13 12:30 | DRG 682 ==
LOC: ER 11:13 → 5 SOUTH 14:57
PROVIDERS: ADMIT Internal Medicine; ATTEND Internal Medicine
DX: N17.9 Acute kidney failure, unspecified (principal); G93.41 Metabolic encephalopathy; M62.82 Rhabdomyolysis; C44.90 Unspecified malignant neoplasm of skin, unspecified; C55 Malignant neoplasm of uterus, part unspecified; H26.9 Unspecified cataract; I12.9 Hypertensive chronic kidney disease with stage 1 through stage 4 chronic kidney disease, or unspecified chronic kidney disease; D72.829 Elevated white blood cell count, unspecified; E03.9 Hypothyroidism, unspecified; F03.90 Unspecified dementia, unspecified severity, without behavioral disturbance, psychotic disturbance, mood disturbance, and anxiety; I48.0 Paroxysmal atrial fibrillation; M19.011 Primary osteoarthritis, right shoulder; M19.012 Primary osteoarthritis, left shoulder; N18.9 Chronic kidney disease, unspecified; R29.6 Repeated falls; R32 Unspecified urinary incontinence; W19.XXXA Unspecified fall, initial encounter; Y92.009 Unspecified place in unspecified non-institutional (private) residence as the place of occurrence of the external cause; Z83.3 Family history of diabetes mellitus; Z85.42 Personal history of malignant neoplasm of other parts of uterus; Z85.828 Personal history of other malignant neoplasm of skin; Z90.710 Acquired absence of both cervix and uterus; Z60.2 Problems related to living alone; Z88.8 Allergy status to other drugs, medicaments and biological substances; Z66 Do not resuscitate; Z79.899 Other long term (current) drug therapy
CPT/HCPCS: 36415; 70450; 71045; 71250; 72125; 74176; 76770; 80048; 80053; 81001; 82550; 82607; 84443; 84484; 85007; 85025; 93005; 93306; J0696; J3490; J7030; J7040; U0003; U0005; 97110-GP; 97116-GP; 97530-GP; 97535-GO; 99285-25; G0378